=== PATIENT | female | born 1980 | race Caucasian/White ===

== ENCOUNTER 2016-12-03 12:32 | Inpatient (IN) | payer SELFPAY ==
[~2016-12-03] VITALS: Ht 152.4 cm; Wt 62.5 kg
[2016-12-03] MEDS ORDERED: PRENAT PO (13:08)
[2016-12-03] MEDS ORDERED: TERBUTALINE 1 ML ONE (13:38)
[2016-12-03 13:54] VITALS: BP 123/62; PULSE 80; RESP 20
[2016-12-03 13:55] VITALS: Ht 152.4 cm; Wt 62.5 kg
[2016-12-03] MEDS ORDERED: LACTATED RINGER'S 500 ML IV ONE (14:00)
[2016-12-03] MEDS ORDERED: TERBUTALINE 1 MG/ML INJ SC ONE ×2 (14:00→15:00)
--- NOTE | 2016-12-03 14:00 | RADRPT ---
PROCEDURE: US OB. CLINICAL INDICATION: labor TECHNIQUE: Multiple sonographic images of the pelvis were obtained. Transabdominal imaging only w as performed. The images were reviewed on a PACS workstation. COMPARISON: No prior studies are available for comparison. FINDINGS: There is a single live intrauterine gestation. Cardiac activity is present with 144 beats per minut e. position is cephalic. The cervix is closed with a length of 2.7 cm. Measurements were made in order to determine age. The results are as follows: BPD = 6.34 cm HC = 23.01 cm AC = 21.23 cm FL = 4.51 cm. Estimated gestational age of approximately 25 weeks 2 days. The estimated date of delivery is 03/16/2017. The EFW = 802.51 g, 43 %ile. The placenta is anterior. There is no evidence for an abruption or placenta previa. There are no adnexal masses. The RINA measures 11.8 cm. IMPRESSION: 1. Single live intrauterine gestation of approximately 25 weeks 2 days, by ultrasound criteria. 2. The estimated date of delivery is 03/16/2017. 3. The estimated weight is 802.5 g, 43 %ile. 4. The RINA measures 11.8 cm. 5. The cervix is closed with a length of 2.7 cm. RPTAT: HH .Radha Baez MD, Date Time Electronically viewed and signed by .Radha Baez MD, on 12/03/2016 13:59 .G/
[2016-12-03 14:32] LABS: BASOPHIL # 0.1 10^3/ul (0.0-0.1); BASOPHILS % 0.3 % (0.0-2.0); EOSINOPHILS % 0.2 % (0.0-7.0); HEMATOCRIT 35.6 % (37.0-47.0); HEMOGLOBIN 12.4 g/dl (12.0-16.0); LYMPHOCYTES # 3.5 10^3/ul (0.8-2.9); LYMPHOCYTES % 17.6 % (15.0-51.0); MEAN CORPUSCULAR HEMOGLOBIN 30.8 pg (29.0-33.0); MEAN CORPUSCULAR HGB CONC 34.8 g/dl (32.0-37.0); MEAN CORPUSCULAR VOLUME 88.6 fl (82.0-101.0); MEAN PLATELET VOLUME 9.7 fl (7.4-10.4); MONOCYTE # 1.3 10^3/ul (0.3-0.9); MONOCYTES % 6.7 % (0.0-11.0); NEUTROPHILS % 73.7 % (39.0-77.0); PLATELET COUNT 313 10^3/UL (140-415); RED BLOOD COUNT 4.02 10^6/ul (4.20-5.40); RED CELL DISTRIBUTION WIDTH 13.1 % (11.5-14.5); WHITE BLOOD COUNT 20.1 10^3/ul (4.8-10.8)
[2016-12-03 14:34] LABS: ADD UMIC NO; UR ASCORBIC ACID NEGATIVE (NEGATIVE); UR BILIRUBIN (Dip) NEGATIVE (NEGATIVE); UR BLOOD (Dip) NEGATIVE (NEGATIVE); UR CLARITY CLEAR (CLEAR); UR COLOR STRAW (YELLOW); UR GLUCOSE (Dip) NEGATIVE (NEGATIVE); UR KETONES (Dip) NEGATIVE (NEGATIVE); UR LEUKOCYTE ESTERASE (Dip) NEGATIVE Leu/ul (NEGATIVE); UR NITRITE (Dip) NEGATIVE (NEGATIVE); UR SPECIFIC GRAVITY (Dip) 1.006 (1.003-1.030); UR TOTAL PROTEIN (Dip) NEGATIVE (NEGATIVE); UR UROBILINOGEN (Dip) NEGATIVE (NEGATIVE)
[2016-12-03 14:54] LABS: ALBUMIN 4.2 g/dl (3.3-4.9); ALBUMIN/GLOBULIN RATIO 1.02; BILIRUBIN,INDIRECT 0.2 mg/dl (0-1.1); BILIRUBIN,TOTAL 0.2 mg/dl (0.2-1.3); CALCIUM 10.2 mg/dl (8.4-10.2); CREATININE 0.52 mg/dl (0.44-1.00); TOTAL PROTEIN 8.3 g/dl (6.1-8.1)
[2016-12-03 15:02] LABS: BARBITURATES Negative (NEGATIVE); BENZODIAZEPINES Negative (NEGATIVE); CANNABINOIDS Negative (NEGATIVE); COCAINE Negative (NEGATIVE); OPIATES Negative (NEGATIVE)
[2016-12-03] MEDS ORDERED: MAGNESIUM SULFATE 4 GM/100 ML 100 ML IV ONE (15:30)
[2016-12-03] MEDS ORDERED: CEFTRIAXONE 2 GM INJ IM ONE (15:30)
[2016-12-03] MEDS: BETAMET NA PHOS/AC(6 MG/ML) 5ML INJ IM SCH (15:52)
[2016-12-03] MEDS: LACTATED RINGER'S 1,000 ML IV SCH (15:52)
[2016-12-03] MEDS: MAGNESIUM SULFATE 20 GM/500 ML 500 ML IV SCH (16:07)
[2016-12-03 16:25] LABS: INR 0.89; PARTIAL THROMBOPLASTIN TIME 24.4 Sec (25.0-35.0); PT RATIO 0.9
--- NOTE | 2016-12-03 16:37 | HP ---
Date/Time of Note Date/Time of Note DATE: 12/03/16 TIME: 16:15 OB - History Hx of Present Free Text/Dictation December 03, 2016 OB triage consult and history and physical for admission This patient is a 36 years old 1 para 0 who came to triage clinic complaining of abdominal pain and occasional contractions. She [facility] only a few days ago. . On examination she is an apparently well-developed well-nourished at midterm in no acute distress. However on conversation she says she came to triage because of pain in the abdominal area. Her general vital signs appear to be normal; with blood pressure of 123/62, pulse rate of 80 respiration 20 temperature 97.7. Abdomen is soft .she complains of slight stomach tenderness. she does have contraction every 7-8 minutes. No suprapubic or costovertebral vertebral angle tenderness. On pelvic examination the cervix was closed ,long and high with intact membrane Laboratory Tests Test 12/03/16 13:19 12/03/16 14:10 Urine Color STRAW Urine Clarity CLEAR Urine pH 7.0 Urine Specific [place] 1.006 Urine Ketones NEGATIVEmg/dL Urine Nitrite NEGATIVEmg/dL Urine Bilirubin NEGATIVEmg/dL Urine Urobilinogen NEGATIVEmg/dL Urine Leukocyte Esterase NEGATIVELeu/ul Urine Hemoglobin NEGATIVEmg/dL Urine Glucose NEGATIVEmg/dL Urine Total Protein NEGATIVEmg/dl Fibronectin NEGATIVE Urine Opiates Screen Negative Urine Barbiturates Negative Urine Amphetamines Screen Negative Urine Benzodiazepines Screen Negative Urine Cocaine Screen Negative Urine Cannabinoids Negative White Blood Count 20.110^3/ul Red Blood Count 4.0210^6/ul Hemoglobin 12.4g/dl Hematocrit 35.6% Mean Corpuscular Volume 88.6fl Mean Corpuscular Hemoglobin 30.8pg Mean Corpuscular Hemoglobin Concent 34.8g/dl Red Cell Distribution Width 13.1% Platelet Count 03287^3/UL Mean Platelet Volume 9.7fl Neutrophils % 73.7% Lymphocytes % 17.6% Monocytes % 6.7% Eosinophils % 0.2% Basophils % 0.3% Nucleated Red Blood Cells % 0.0/100WBC Neutrophils # (Manual) 14.810^3/ul Lymphocytes # 3.510^3/ul Monocytes # 1.310^3/ul Eosinophils # 0.010^3/ul Basophils # 0.110^3/ul Nucleated Red Blood Cells # 0.010^3/ul Sodium Level 140mmol/L Potassium Level 4.0mmol/L Chloride Level 106mmol/L Carbon Dioxide Level 23mmol/L Anion Gap 15 Blood Urea Nitrogen 5mg/dl Creatinine 0.52mg/dl Glucose Level 75mg/dl Calcium Level 10.2mg/dl Total Bilirubin 0.2mg/dl Direct Bilirubin 0.00mg/dl Indirect Bilirubin 0.2mg/dl Aspartate Amino Transf (AST/SGOT) 21IU/L Alanine Aminotransferase (ALT/SGPT) 20IU/L Alkaline Phosphatase 98IU/L Total Protein 8.3g/dl Albumin 4.2g/dl Globulin 4.10g/dl Albumin/Globulin Ratio 1.02 Current Medications Medications (Trade) Dose Ordered Sig/Jody Route PRN Reason Start Time Stop Time Status Last Admin Dose Admin Terbutaline Sulfate 0.25 mg 0.25 mg ONCE ONCE SC 12/03/16 14:00 12/03/16 14:01 DC 12/03/16 13:51 Lactated Ringer's 500 ml @ 500 mls/hr Q1H ONCE IV 12/03/16 14:00 12/03/16 14:59 DC 12/03/16 14:00 [facility] .[facility] 12/03/16 13:38 12/03/16 13:39 DC Terbutaline Sulfate 0.25 mg 0.25 mg ONCE ONCE SC 12/03/16 15:00 12/03/16 15:01 DC 12/03/16 15:04 Lactated Ringer's 1,000 ml @ 125 mls/hr Q8H IV 12/03/16 15:00 12/03/16 15:52 Magnesium Sulfate 100 ml @ 200 mls/hr ONCE ONCE IV 12/03/16 15:30 12/03/16 15:59 DC 12/03/16 15:58 Magnesium Sulfate (Magnesium Sulfate 20 Gm/500 ml) 500 ml @ 50 mls/hr Q10H IV 12/03/16 15:15 12/03/16 16:07 Betamethasone Acet/Betameth SodPhos (Celestone Soluspan) 12 mg Q24H IM 12/03/16 15:30 12/04/16 15:31 12/03/16 15:52 Prenat Multivit/ Investment Analyst/Iron/Folic Ac () 1 tab DAILY PO 12/03/16 15:30 Docusate Sodium (Colace) 100 mg DAILY PO 12/04/16 09:00 Ceftriaxone Sodium (Rocephin) 2 gm ONCE ONCE IM 12/03/16 15:30 12/03/16 15:31 DC : 1 Para: 0 Ultrasounds: No ultrasounds Abnormal Ultrasound Findings: On ultrasound study the report is a single live intrauterine gestation, cardiac activity present with 144 bpm in vertex presentation cervix is closed with a length of 2.7 cm .the estimated gestational age of approximately 25 weeks and 2 days with estimated date of delivery of February. Her estimated weight was 802.51 g which makes her 43rd percentile .placenta was anterior .amniotic fluid index was reported 11.8. On laboratory studies the most striking finding was the was the WBC of 20,100 RBC hematocrit platelet count were within normal limits Impression: With these finding the possibility of amnionitis ,appendicitis or any other infectious process was entertained. Plan: Will start tocolysis: hydration given .terbutaline was injected, mag sulfate started. Due to possibility of infection Betamethasone was not given. We will start her on Rocephin 2 g on a daily basis. As a follow-up tomorrow few of these studies including CBC and ultrasound with repeated End of dictation thank you Past Family/Social History * Past Medical, Surgical, Family and Obstetric Histories reviewed from chart. OB Admission Exam Vital Signs Vital Signs Vital Signs Date Time Temp Pulse Resp B/P Pulse Ox O2 Delivery O2 Flow Rate FiO2 12/03/16 13:54 98.0 80 20 123/62 Room Air Last 72 hours Lab Results CBC & BMP 12/03/16 14:10 Liver Function Test 12/03/16 14:10 Alanine Aminotransferase (ALT/SGPT) 20 Albumin 4.2 Alkaline Phosphatase 98 Aspartate Amino Transf (AST/SGOT) 21 Direct Bilirubin 0.00 Total Protein 8.3 H PEPE KING MD Dec 03, 2016 16:27
[2016-12-03] MEDS ORDERED: CEFTRIAXONE 2 GM/50 ML (PMX) 50 ML IVPB ONE (17:30)
[2016-12-03] MEDS ORDERED: ONDANSETRON 4 MG INJ IV PRN (20:00)
[2016-12-03] MEDS ORDERED: AL HYDROX/MG HYDROX/SIMETH 30 ML CUP PO PRN (20:00)
[2016-12-03] MEDS: PRENATAL VITAMIN PO SCH (20:28)
[2016-12-03] MEDS: ACETAMINOPHEN 325 MG TAB PO PRN (20:30)
[2016-12-04] MEDS: MAGNESIUM SULFATE 20 GM/500 ML 500 ML IV SCH ×2 (02:29→13:15)
[2016-12-04] MEDS: LACTATED RINGER'S 1,000 ML IV SCH ×2 (02:30→14:56)
[2016-12-04] MEDS: ACETAMINOPHEN 325 MG TAB PO PRN (09:38)
[2016-12-04] MEDS: DOCUSATE SODIUM 100 MG CAP PO SCH (09:39)
[2016-12-04] MEDS: PRENATAL VITAMIN PO SCH (09:39)
[2016-12-04 12:27] LABS: ABNORMAL IP MESSAGE 1; BASOPHILS % 0.2 % (0.0-2.0); HEMATOCRIT 33.1 % (37.0-47.0); HEMOGLOBIN 11.6 g/dl (12.0-16.0); LYMPHOCYTES # 1.8 10^3/ul (0.8-2.9); MEAN CORPUSCULAR HEMOGLOBIN 31.5 pg (29.0-33.0); MEAN CORPUSCULAR VOLUME 89.9 fl (82.0-101.0); MEAN PLATELET VOLUME 9.1 fl (7.4-10.4); MONOCYTE # 1.2 10^3/ul (0.3-0.9); MONOCYTES % 4.7 % (0.0-11.0); NEUTROPHILS % 87.1 % (39.0-77.0); PLATELET COUNT 320 10^3/UL (140-415); RED BLOOD COUNT 3.68 10^6/ul (4.20-5.40); RED CELL DISTRIBUTION WIDTH 13.2 % (11.5-14.5); WHITE BLOOD COUNT 25.9 10^3/ul (4.8-10.8)
[2016-12-04 12:28] LABS: POSITIVE DIFF @See below
--- NOTE | 2016-12-04 13:28 | QN ---
Documentation Comment 25+wks GA wih labor Currently on Mg And s/p 1st dose of steroid NSt reassuring for GA [place] No CTXs --->contiue the current orders OLGA STEINBERG M.D. Dec 04, 2016 13:28
[2016-12-04] MEDS ORDERED: INDOMETHACIN 50 MG PO ONE (16:00)
[2016-12-04] MEDS: BETAMET NA PHOS/AC(6 MG/ML) 5ML INJ IM SCH (16:28)
[2016-12-04] MEDS ORDERED: INDOMETHACIN 25 MG PO SCH (17:00)
--- NOTE | 2016-12-04 17:46 | CONS ---
DATE OF ADMISSION: 12/03/2016 DATE OF CONSULTATION: 12/04/2016 Neonatology Consult HISTORY OF PRESENT ILLNESS: Martha is a 36-year-old, 1, para 0 mother whose gestation presently is 25 and 3/7 weeks'. She came in through ER panel with evidence of labor and no records having recently moved from [facility]. The mother is presently receiving Rocephin, steroids and magnesium sulfate for tocolysis. RECOMMENDATIONS: I spoke to the mother and father in [place] regarding the risks associated with delivery at 25-26 weeks of gestation, including but not limited to, the following: Respiratory. I spoke about the risk of respiratory distress syndrome, as well as the treatment using oxygen ventilatory support and noninvasive support. There is also significant risk for apnea of prematurity and I discussed the use of caffeine and nasal cannula support for this once the infant was extubated. There is also a significant risk for chronic lung disease especially in those infants at 25 weeks of gestation and less. I spoke about the risks of cardiac problems, including hypertension, the use of inotrope support and volume support and patent ductus arteriosus and its treatment. I spoke about the risks of infection, the use of antibiotics. I spoke about the risks for anemia possibility for transfusions as well as physiologic jaundice and use of phototherapy. I spoke about the risk of interventricular hemorrhage and long- term neurodevelopmental problems. I also spoke about the nutritive problems associated with premature requirement for parental nutrition initially as well as gavage feedings. There is a small risk of this infant having significant disease processes which may cause loss that is probably less than 5-10 percent. The risk of long-term developmental problems are probably more so around 20-25 percent. These were discussed with the parents. I answered the parents questions and will be available for attendance at delivery or further consultation as necessary. If you have any further questions, please do not hesitate to contact me. Dictated By: Aye Samuel MD /sacha/fernando Kim#: [id number]/Document#: [id number] CC: Virgen Murphy MD;*EndCC*
[2016-12-05] MEDS: LACTATED RINGER'S 1,000 ML IV SCH ×3 (00:35→17:52)
[2016-12-05] MEDS: INDOMETHACIN 25 MG PO SCH ×5 (01:01→23:00)
[2016-12-05 06:38] LABS: BASOPHILS % 0.1 % (0.0-2.0); HEMATOCRIT 31.4 % (37.0-47.0); HEMOGLOBIN 10.7 g/dl (12.0-16.0); LYMPHOCYTES # 1.9 10^3/ul (0.8-2.9); LYMPHOCYTES % 8.3 % (15.0-51.0); MEAN CORPUSCULAR HEMOGLOBIN 30.7 pg (29.0-33.0); MEAN CORPUSCULAR HGB CONC 34.1 g/dl (32.0-37.0); MEAN PLATELET VOLUME 9.4 fl (7.4-10.4); MONOCYTE # 0.7 10^3/ul (0.3-0.9); MONOCYTES % 3.2 % (0.0-11.0); NEUTROPHILS % 87.2 % (39.0-77.0); PLATELET COUNT 327 10^3/UL (140-415); RED BLOOD COUNT 3.49 10^6/ul (4.20-5.40); WHITE BLOOD COUNT 22.7 10^3/ul (4.8-10.8)
[2016-12-05] MEDS: PRENATAL VITAMIN PO SCH (08:48)
[2016-12-05] MEDS: DOCUSATE SODIUM 100 MG CAP PO SCH (08:48)
[2016-12-05] MEDS: MAGNESIUM SULFATE 20 GM/500 ML 500 ML IV SCH (08:50)
--- NOTE | 2016-12-05 12:13 | QN ---
Documentation Comment December 05, 2069 follow-up visit Follow-up visit with this patient who was admitted 2 days ago. This patient is a 36 years old 1 para 0 who came to triage clinic complaining of abdominal pain and occasional contractions. She states that she entered the [facility] from [facility] only a few days ago. ..She had her course of a beta Methasone her mag sulfate is now 1 g/h Her WBC still elevated 22.7 thousand But today she is more comfortable abdomen is soft. tracing are normal with fairly good variability . Laboratory Tests Test 12/04/16 12:12 12/04/16 23:57 12/05/16 05:58 White Blood Count 25.910^3/ul 22.710^3/ul Red Blood Count 3.6810^6/ul 3.4910^6/ul Hemoglobin 11.6g/dl 10.7g/dl Hematocrit 33.1% 31.4% Mean Corpuscular Volume 89.9fl 90.0fl Mean Corpuscular Hemoglobin 31.5pg 30.7pg Mean Corpuscular Hemoglobin Concent 35.0g/dl 34.1g/dl Red Cell Distribution Width 13.2% 13.0% Platelet Count 90812^3/UL 37534^3/UL Mean Platelet Volume 9.1fl 9.4fl Neutrophils % 87.1% 87.2% Lymphocytes % 7.0% 8.3% Monocytes % 4.7% 3.2% Eosinophils % 0.0% 0.0% Basophils % 0.2% 0.1% Nucleated Red Blood Cells % 0.0/100WBC 0.0/100WBC Neutrophils # (Manual) 22.610^3/ul 19.810^3/ul Lymphocytes # 1.810^3/ul 1.910^3/ul Monocytes # 1.210^3/ul 0.710^3/ul Eosinophils # 0.010^3/ul 0.010^3/ul Basophils # 0.010^3/ul 0.010^3/ul Nucleated Red Blood Cells # 0.010^3/ul 0.010^3/ul Magnesium Level 5.6mg/dl 4.2mg/dl 4.3mg/dl Current Medications Medications (Trade) Dose Ordered Sig/Jody Route PRN Reason Start Time Stop Time Status Last Admin Dose Admin Terbutaline Sulfate 0.25 mg 0.25 mg ONCE ONCE SC 12/03/16 14:00 12/03/16 14:01 DC 12/03/16 13:51 Lactated Ringer's 500 ml @ 500 mls/hr Q1H ONCE IV 12/03/16 14:00 12/03/16 14:59 DC 12/03/16 14:00 Terbutaline Sulfate (Brethine) 1 ml @ [facility] ONCE .ROUTE 12/03/16 13:38 12/03/16 13:39 DC Terbutaline Sulfate 0.25 mg 0.25 mg ONCE ONCE SC 12/03/16 15:00 12/03/16 15:01 DC 12/03/16 15:04 Lactated Ringer's 1,000 ml @ 75 mls/hr [id number] IV 12/03/16 15:00 12/05/16 05:09 Magnesium Sulfate 100 ml @ 200 mls/hr ONCE ONCE IV 12/03/16 15:30 12/03/16 15:59 DC 12/03/16 15:58 Magnesium Sulfate (Magnesium Sulfate 20 Gm/500 ml) 500 ml @ 25 mls/hr Q20H IV 12/03/16 15:15 12/05/16 08:50 Betamethasone Acet/Betameth SodPhos (Celestone Soluspan) 12 mg Q24H IM 12/03/16 15:30 12/04/16 15:31 DC 12/04/16 16:28 Prenat Multivit/ Dickenson/Iron/Folic Ac () 1 tab DAILY PO 12/03/16 15:30 12/05/16 08:48 Docusate Sodium (Colace) 100 mg DAILY PO 12/04/16 09:00 12/05/16 08:48 Ceftriaxone Sodium 2 gm 2 gm ONCE ONCE IM 12/03/16 15:30 12/03/16 17:04 DC Ceftriaxone Sodium (Rocephin) 50 ml @ 100 mls/hr ONCE ONCE IVPB 12/03/16 17:30 12/03/16 17:59 DC 12/03/16 17:26 Acetaminophen (Tylenol Tab) 650 mg Q6H PRN PO PAIN AND OR ELEVATED TEMP 12/03/16 20:00 12/04/16 09:38 Ondansetron HCl (Zofran Inj) 4 mg Q4H PRN IV NAUSEA AND/OR VOMITING 12/03/16 20:00 Al Hydrox/Mg Hydrox/Simethicone (Mag-Al Plus) 30 ml Q6H PRN PO GASTROINTESTINAL UPSET 12/03/16 20:00 12/03/16 20:30 Indomethacin (Indocin) 50 mg ONCE ONCE PO 12/04/16 16:00 12/04/16 16:01 DC 12/04/16 16:28 Indomethacin (Indocin) 25 mg QID PO 12/04/16 17:00 12/04/16 17:00 DC Indomethacin (Indocin) 25 mg Q6H PO 12/04/16 23:00 12/05/16 11:03 A CBC report from today shows a WBC of 22,700 mild anemia hemoglobin 10.7 hematocrit 31.4 platelet on the other element of CBC are close to normal The plan would be to monitor and continue the treatment to make sure that she is a stable.and is able to be discharged PEPE KING MD Dec 05, 2016 12:13
[2016-12-05] MEDS: AMOXICILLIN 500 MG CAP PO SCH (21:23)
--- NOTE | 2016-12-06 00:15 | CONS ---
DATE OF ADMISSION: 12/03/2016 DATE OF CONSULTATION: 12/05/2016 HISTORY: Patient is a 36-year-old who presented the day before yesterday with complaint of contractions. Her white count was 20,000 at the time of admission, without any fever. She denies any exposure to cold or any other infectious diseases. However, she was georges regularly. She was placed on magnesium sulfate; however, despite recommendation, she received betamethasone, and yesterday her white count was 25,000 which is reflection of effect of betamethasone that she received; however, today despite the 2nd dose of betamethasone, her white count has decreased to 22,000, which is reassuring. She received 1 dose of Rocephin at the time of admission. Currently, she has no complaint. Her contractions have resolved. Cervical length, 2.7 cm. History is negative. REVIEW OF SYSTEMS: Negative, except for as mentioned above. VITAL SIGNS: Stable, without any fever. There is no evidence of CVA tenderness. heart tones reassuring for gestational age, contractions none. LABORATORY: UA shows positive GBS in the urine. IMPRESSION: 1. 1 at 25 weeks with labor, status post betamethasone x2 and currently on magnesium. 2. Leukocytosis, which is most likely secondary to urinary tract infection. 3. She is stable, without any contractions, and the increase in the white count, which is the reflection of the betamethasone, and please understand that despite 2 doses of betamethasone, her white count essentially has decreased since yesterday, which is reassuring. RECOMMENDATIONS: Repeat a CBC tomorrow. Please start amoxicillin 500 mg twice a day for 7 days for treatment of the GBS. Continue with the magnesium sulfate until 24 hours after the 2nd dose of betamethasone. After that, can continue and monitor for contraction. If the white count continues to decrease and patient is stable, she can be discharged home, possibly tomorrow, and it is extremely important that patient finishes the present dose of antibiotics. labor precaution was given, and she is scheduled for a transvaginal cervical length in 2 weeks with the Perinatology and modified bedrest and pelvic rest are recommended. Dictated By: Cammie Tinoco MD /sacha/luis /Document#: [id number]
[2016-12-06] MEDS: INDOMETHACIN 25 MG PO SCH ×2 (06:07→11:28)
[2016-12-06 07:15] LABS: BASOPHILS % 0.1 % (0.0-2.0); EOSINOPHILS # 0.1 10^3/ul (0.0-0.5); EOSINOPHILS % 0.3 % (0.0-7.0); HEMATOCRIT 28.3 % (37.0-47.0); HEMOGLOBIN 9.4 g/dl (12.0-16.0); LYMPHOCYTES % 24.6 % (15.0-51.0); MEAN CORPUSCULAR HEMOGLOBIN 30.5 pg (29.0-33.0); MEAN CORPUSCULAR HGB CONC 33.2 g/dl (32.0-37.0); MEAN CORPUSCULAR VOLUME 91.9 fl (82.0-101.0); MEAN PLATELET VOLUME 9.5 fl (7.4-10.4); MONOCYTE # 0.9 10^3/ul (0.3-0.9); MONOCYTES % 5.3 % (0.0-11.0); NEUTROPHILS % 68.6 % (39.0-77.0); PLATELET COUNT 296 10^3/UL (140-415); RED BLOOD COUNT 3.08 10^6/ul (4.20-5.40); RED CELL DISTRIBUTION WIDTH 13.2 % (11.5-14.5); WHITE BLOOD COUNT 16.2 10^3/ul (4.8-10.8)
[2016-12-06] MEDS: LACTATED RINGER'S 1,000 ML IV SCH (08:29)
[2016-12-06] MEDS: PRENATAL VITAMIN PO SCH (08:29)
[2016-12-06] MEDS: AMOXICILLIN 500 MG CAP PO SCH (08:29)
[2016-12-06] MEDS: DOCUSATE SODIUM 100 MG CAP PO SCH (08:29)
--- NOTE | 2016-12-06 11:33 | PN ---
Date/Time of Note Date/Time of Note DATE: 12/06/16 TIME: 11:32 OB Subjective Subjective Subjective Patient denies contractions. OB Objective Objective Objective Gen: NAD Abd: gravid, NT FHT: reassuring [place]: no UCs OB Assessment/Plan Reason for admission: labor Other plan: 36 y/o at 25w 4d with labor -s/p magnesium sulfate, betamethasone -continue antibiotics for UTI -discharge home with copy of records, plans to follow-up in [facility] with her OB EMILY ZEPEDA Dec 06, 2016 11:33
--- NOTE | 2016-12-06 11:35 | DS ---
Date/Time of Note Date/Time of Note DATE: 12/06/16 TIME: 11:34 Obstetrical Discharge Record Final Diagnosis Final Diagnosis: not delivered Condition on Discharge Physical Assessment Last Vitals: See progress note Patient Condition: Good EMILY ZEPEDA Dec 06, 2016 11:35
== END 2016-12-06 12:20 | disposition home or self-care (01) | DRG 780 ==
LOC: OBT 12:32 → OBG 12:32 → OBT 15:00
DX: O47.03 False labor before 37 completed weeks of gestation, third trimester (principal); O09.513 Supervision of elderly primigravida, third trimester; Z3A.36 36 weeks gestation of pregnancy
CPT/HCPCS: 59025; 76815; 76817; 80053; 80307; 81003; 82731; 83735; 85025; 85610; 85730; 86592; 86703; 86706; 86900; 86901; 87040; 87086; 87340; 87536; 87591; 96360; 96372; G0463; J0702; J3105; J3475; J7120

== ENCOUNTER 2017-01-07 08:27 | Inpatient (IN) | payer MEDICAID ==
[~2017-01-07] VITALS: Ht 154.9 cm; Wt 66.1 kg
[2017-01-07 08:43] VITALS: BP 107/63; PULSE 76; Ht 154.9 cm; Wt 66.1 kg
[2017-01-07] MEDS ORDERED: LACTATED RINGER'S 1,000 ML IV SCH ×2 (09:00→10:01)
--- NOTE | 2017-01-07 09:41 | RADRPT ---
PROCEDURE: US OB biophysical profile. Ultrasound cervix CLINICAL INDICATION: decreased movements, labor TECHNIQUE: Multiple sonographic images of the pelvis were obtained. In addition, transvaginal artemio ges of the cervix were obtained. The images were reviewed on a PACS workstation. COMPARISON: No prior studies are available for comparison. FINDINGS: There is a single viable intrauterine gestation. Cardiac activity is present with 152 beats per min rowdy. There is a vertex presentation. The placenta is anterior. There is no evidence of placental abruption. There is a normal amount of amniotic fluid with an RINA = 10.6 cm. The cervix measures 3.0 cm in length. Biophysical profile: movement 2/2 tone 2/2. breathing 2/2 RINA 2/2 Total 11/05 RPTAT: AA . IMPRESSION: Normal biophysical profile. Cervix measures 3.0 cm in length. .Bernard Samayoa MD, MD Date Time Electronically viewed and signed by .Bernard Samayoa MD, on 01/07/2017 09:41 .S/
[2017-01-07] MEDS ORDERED: TERBUTALINE 1 ML ONE (09:42)
[2017-01-07 09:44] LABS: BASOPHIL # 0.1 10^3/ul (0.0-0.1); BASOPHILS % 0.4 % (0.0-2.0); EOSINOPHILS % 0.2 % (0.0-7.0); HEMATOCRIT 36.6 % (37.0-47.0); HEMOGLOBIN 12.4 g/dl (12.0-16.0); LYMPHOCYTES # 2.8 10^3/ul (0.8-2.9); LYMPHOCYTES % 17.7 % (15.0-51.0); MEAN CORPUSCULAR HEMOGLOBIN 30.4 pg (29.0-33.0); MEAN CORPUSCULAR HGB CONC 33.9 g/dl (32.0-37.0); MEAN CORPUSCULAR VOLUME 89.7 fl (82.0-101.0); MEAN PLATELET VOLUME 9.4 fl (7.4-10.4); MONOCYTE # 0.8 10^3/ul (0.3-0.9); MONOCYTES % 4.8 % (0.0-11.0); NEUTROPHILS % 75.5 % (39.0-77.0); PLATELET COUNT 301 10^3/UL (140-415); RED BLOOD COUNT 4.08 10^6/ul (4.20-5.40); RED CELL DISTRIBUTION WIDTH 12.9 % (11.5-14.5); WHITE BLOOD COUNT 15.9 10^3/ul (4.8-10.8)
[2017-01-07 09:52] LABS: ADD UMIC YES; UR ASCORBIC ACID NEGATIVE (NEGATIVE); UR BILIRUBIN (Dip) NEGATIVE (NEGATIVE); UR BLOOD (Dip) NEGATIVE (NEGATIVE); UR CLARITY CLOUDY (CLEAR); UR COLOR YELLOW (YELLOW); UR GLUCOSE (Dip) NEGATIVE (NEGATIVE); UR KETONES (Dip) 1+ mg/dL (NEGATIVE); UR LEUKOCYTE ESTERASE (Dip) 3+ Leu/ul (NEGATIVE); UR NITRITE (Dip) NEGATIVE (NEGATIVE); UR RBC 7 /HPF (0-5); UR SPECIFIC GRAVITY (Dip) 1.011 (1.003-1.030); UR SQUAMOUS EPITHELIAL CELL MANY /HPF (FEW); UR TOTAL PROTEIN (Dip) NEGATIVE (NEGATIVE); UR UROBILINOGEN (Dip) NEGATIVE (NEGATIVE)
[2017-01-07] MEDS ORDERED: TERBUTALINE 1 MG/ML INJ SC ONE (10:00)
[2017-01-07] MEDS ORDERED: MAGNESIUM SULFATE 4 GM/100 ML 100 ML IV ONE (10:30)
[2017-01-07] MEDS: MAGNESIUM SULFATE 20 GM/500 ML 500 ML IV SCH ×2 (11:24→22:09)
[2017-01-07] MEDS: PRENATAL VITAMIN PO SCH (11:34)
[2017-01-07] MEDS ORDERED: CEFTRIAXONE 1 GM/50 ML (PMX) 50 ML IVPB ONE (15:00)
[2017-01-07] MEDS: SOD CHLORIDE 0.9% 1,000 ML IV SCH (15:49)
--- NOTE | 2017-01-07 17:43 | HP ---
Date/Time of Note Date/Time of Note DATE: 01/07/17 TIME: 17:24 OB - History Hx of Present Free Text/Dictation 36 y.o primigravida at 30w2d with c/o uterine contractions. this patient was here for same problem in dec 03 and and had x2 dose of BMZ pain level 8/10 membrane intact BPP 8/8 CVL 3. no FFN sent EFM shows UC q2-3 min apart even after terbutaline x1 dose given IV bolus of fluid Magnesium sulfate was given as loading dose then admitted for tocolysis and neuroprotection purposes U/A urine culture sent Chief Complaint: u.c's Estimated Due Date: Mar 16, 2017 : 1 Para: 0 Spontaneous : 0 Therapeutic : 0 Care: Limited Care Other Concerns: !hr GTT 200 done on 12/30 f/b 3hr GTT x2 value abnormal Past Family/Social History * Past Medical, Surgical, Family and Obstetric Histories reviewed from chart. Blood Type: O+ Rubella: immune RPR/VDRL: Negative GBS Status: Unknown HBsAG: Negative OB Admission Exam Vital Signs Vital Signs Vital Signs Date Time Temp Pulse Resp B/P Pulse Ox O2 Delivery O2 Flow Rate FiO2 01/07/17 08:43 97.8 76 107/63 Physical Exam HEENT: WNL Heart: Rhythm Normal Lungs: Clear, Equal Abdomen: WNL Extremities: Normal Reflexes: Normal Cervical Dilatation: other Effacement: Other Station: Other Membranes: Intact Amniotic Fluid: Unevaluable Heart Rate: 140's Accelerations: Accelerations Present Decelerations: No Decelerations Varibility: Moderate Contractions on Admission: < 5 Minutes Apart Intensity: Moderate Last 72 hours Lab Results CBC & BMP 01/07/17 09:25 OB Assessment/Plan Reason for admission: labor Other Assessment: IUP 30w2d PTL GDM Other plan: tocolysis with MgSo4 HbA1C, FBS 2hrPPBS 2000ADA DIET APPLICATION SECURITY SPECIALIST PERINATALOGY CONSULT JAI GARNER MD Jan 07, 2017 17:35
[2017-01-07] MEDS ORDERED: ACETAMINOPHEN 500 MG TAB PO STA (18:25)
[2017-01-07 18:27] LABS: ALBUMIN 3.7 g/dl (3.3-4.9); BILIRUBIN,INDIRECT 0.2 mg/dl (0-1.1); BILIRUBIN,TOTAL 0.2 mg/dl (0.2-1.3); CREATININE 0.49 mg/dl (0.44-1.00); POTASSIUM 3.5 mmol/L (3.5-5.1); TOTAL PROTEIN 7.4 g/dl (6.1-8.1)
[2017-01-07] MEDS ORDERED: GLUCAGON 1 MG INJ IM PRN (18:30)
[2017-01-07] MEDS ORDERED: GLUCOSE GEL 15 GRAM TUBE PO PRN ×2 (18:30)
[2017-01-07] MEDS ORDERED: GLUCOSE GEL 15 GRAM TUBE BUCCAL PRN (18:30)
[2017-01-07] MEDS ORDERED: ACETAMINOPHEN 500 MG TAB PO PRN (18:30)
[2017-01-07] MEDS ORDERED: ACETAMINOPHEN 325 MG TAB PO PRN (18:30)
[2017-01-07] MEDS ORDERED: AL HYDROX/MG HYDROX/SIMETH 30 ML CUP PO PRN (18:30)
[2017-01-07] MEDS ORDERED: DEXTROSE 50% 50 ML SYRINGE IV PRN ×2 (18:30)
[2017-01-07] MEDS ORDERED: ONDANSETRON 4 MG INJ IV PRN (18:30)
[2017-01-07] MEDS: ACCU-CHEK XX SCH (20:25)
[2017-01-08] MEDS: MAGNESIUM SULFATE 20 GM/500 ML 500 ML IV SCH ×3 (05:14→18:33)
[2017-01-08] MEDS: SOD CHLORIDE 0.9% 1,000 ML IV SCH ×2 (06:52→17:45)
[2017-01-08] MEDS: PRENATAL VITAMIN PO SCH (09:12)
[2017-01-08] MEDS: BETAMET NA PHOS/AC(6 MG/ML) 5ML INJ IM SCH (11:31)
[2017-01-08] MEDS: ACCU-CHEK XX SCH ×2 (15:00→19:45)
[2017-01-08] MEDS: CEFTRIAXONE 1 GM/50 ML (PMX) 50 ML IVPB SCH (15:53)
--- NOTE | 2017-01-08 18:06 | PN ---
Date/Time of Note Date/Time of Note DATE: 01/08/17 TIME: 18:04 OB Subjective Subjective Subjective 36-year-old female admitted for labor Currently does not have any uterine contractions Blood sugars appear to be stable OB Objective Objective Objective Vital signs stable General physical exam is unchanged Electronic monitoring no uterine contractions seen Blood sugars are stable OB Assessment/Plan Reason for admission: labor Other plan: We will stop magnesium sulfate the following day Start nifedipine after stopping magnesium sulfate Continue to monitor blood sugar Steroids were provided LAURA JOHNSON MD Jan 08, 2017 18:06
[2017-01-08] MEDS: INSULIN ASPART [NOVOLOG] 3 ML PEN SC SCH (20:03)
[2017-01-09] MEDS: MAGNESIUM SULFATE 20 GM/500 ML 500 ML IV SCH (02:39)
--- NOTE | 2017-01-09 06:35 | CONS ---
DATE OF ADMISSION: 01/07/2017 DATE OF CONSULTATION: This is essentially just a brief note as there is not much information for me to do the consult on. She is a newly diagnosed diabetic. There are only 2 values available, one was random last night of 168 and this morning at 88. I will talk to her and manage if necessary her diabetes pending more glucose values. But for the ti me being, insulin sliding scale to cover the values if elevated, and please note that insulin slidin g scale should not cover the fasting values and it only should cover the two hours prandial. Dictated By: DELMY CHAVEZ MD ST/NTS Conf#: [id number] DID#: [id number] CC: LAURA JOHNSON MD;*EndCC*
[2017-01-09] MEDS: ACCU-CHEK XX SCH ×3 (08:40→15:05)
[2017-01-09] MEDS: SOD CHLORIDE 0.9% 1,000 ML IV SCH (08:41)
[2017-01-09] MEDS: INSULIN ASPART [NOVOLOG] 3 ML PEN SC SCH ×2 (10:00→15:18)
[2017-01-09] MEDS: PRENATAL VITAMIN PO SCH (10:21)
[2017-01-09] MEDS: NIFEdipine 10 MG CAP PO SCH ×2 (10:22→16:13)
[2017-01-09] MEDS: BETAMET NA PHOS/AC(6 MG/ML) 5ML INJ IM SCH (12:53)
--- NOTE | 2017-01-09 14:57 | DS ---
Date/Time of Note Date/Time of Note DATE: 01/09/17 TIME: 14:55 Obstetrical Discharge Record Final Diagnosis Final Diagnosis: not delivered Other Final Diagnosis labor at 30+ week Complications Labor Tocolytics: Magnesium Sulfate, Other (Nifedipine) Condition on Discharge Physical Assessment Last Vitals: See nurse's note Voiding: Yes Bowel Movement: Yes Breast: Soft, non-tender, Filling Fundus: Other (Uterus is ) Abdomen and Incision: Abdomen is gravid fundal height is 30 Episiotomy: Not applicable Calf Tenderness: No Patient Condition: Good ( labor resolved) LAURA JOHNSON MD Jan 09, 2017 14:57
[2017-01-09] MEDS: CEFTRIAXONE 1 GM/50 ML (PMX) 50 ML IVPB SCH (16:04)
--- NOTE | 2017-01-09 17:43 | PD.PPDC ---
P[facility]Y [facility]AD[facility] Discharge Instruction Provider Information Physician Information 36-year-old female admitted with contractions at 30+ weeks and had total cessation of her contractions Diagnosis Final Diagnosis: Return labor Condition Patient Condition: Good ( labor resolved) Diet Diet: Special Diet Special Diet: 2000-calorie ADA Activity/Restrictions Activity: Bedrest May Shower Restrictions: Nothing in the Vagina Follow-up Follow-up with Physician: 1, Week/Weeks Return to clinic for Comment: Referred back to hospital in case of vaginal bleeding or uterine contractions LAURA JOHNSON MD Jan 09, 2017 17:43
[2017-01-09] MEDS ORDERED: NIFE10CA19 PO (17:44)
== END 2017-01-09 19:48 | disposition home or self-care (01) | DRG 780 ==
LOC: L-D 08:27 → OBT 08:27 → OBG 10:00 → OBT 10:01 → OBG 10:14
PROVIDERS: ADMIT Obstetrics & Gynecology; ATTEND Obstetrics & Gynecology
DX: O47.03 False labor before 37 completed weeks of gestation, third trimester (principal); O09.523 Supervision of elderly multigravida, third trimester; Z3A.30 30 weeks gestation of pregnancy
CPT/HCPCS: 36415; 76817; 76818; 80053; 81001; 82962; 83036; 83735; 85025; 87086; 96360; G0463; J0696; J0702; J1815; J3105; J3475; J7030; J7120

== ENCOUNTER 2017-01-16 12:51 | Inpatient (IN) | payer MEDICAID ==
[~2017-01-16] VITALS: Ht 149.9 cm; Wt 66.5 kg
[~2017-01-16 12:51] MED LIST: NIFE10CA19 PO
[2017-01-16 13:00] VITALS: Ht 149.9 cm; Wt 66.5 kg
[2017-01-16 13:01] VITALS: BP 103/58; PULSE 81
[2017-01-16] MEDS ORDERED: PREN-19 PO (13:04)
[2017-01-16] MEDS: LACTATED RINGER'S 1,000 ML IV SCH ×2 (14:08→21:04)
--- NOTE | 2017-01-16 14:34 | HP ---
Date/Time of Note Date/Time of Note DATE: 01/16/17 TIME: 14:31 OB - History Hx of Present Free Text/Dictation Admitted by perinatologist from nondistressed test unit because of a low RINA Last Menstrual Period: Jun 09, 2016 Estimated Due Date: Mar 16, 2017 : 1 Para: 0 Care: Good Care Ultrasounds: Normal mid trimester US Obstetrical Complications: Gestational Diabetes, Other ( labor) Medical Complications: None Past Family/Social History * Past Medical, Surgical, Family and Obstetric Histories reviewed from chart. Blood Type: O+ Rubella: immune RPR/VDRL: Negative GBS Status: Unknown HBsAG: Negative OB Admission Exam Vital Signs Vital Signs Vital Signs Date Time Temp Pulse Resp B/P Pulse Ox O2 Delivery O2 Flow Rate FiO2 01/16/17 13:01 97.7 81 103/58 Physical Exam HEENT: WNL Heart: Rhythm Normal Lungs: Clear, Equal Abdomen: WNL Extremities: Normal Reflexes: Normal Cervical Dilatation: None Effacement: 0% Station: -3 Membranes: Intact Heart Rate: 150's Accelerations: Accelerations Present Decelerations: No Decelerations Varibility: Moderate Contractions on Admission: None OB Assessment/Plan Other Assessment: 32+ weeks gestation Decrease amniotic fluid Gestational diabetes labor without delivery Other plan: Continue on Procardia IV hydration Monitor blood sugar Repeat RINA in LAURA Esteban MD Jan 16, 2017 14:34
[2017-01-16] MEDS: NIFEdipine 10 MG CAP PO SCH (17:28)
[2017-01-17] MEDS: NIFEdipine 10 MG CAP PO SCH ×4 (00:01→18:57)
[2017-01-17] MEDS: LACTATED RINGER'S 1,000 ML IV SCH ×3 (04:06→18:04)
--- NOTE | 2017-01-17 17:55 | RADRPT ---
PROCEDURE: US OB. CLINICAL INDICATION: Low RINA TECHNIQUE: Transabdominal views of the pelvis are available for review. COMPARISON: Obstetrical ultrasound from 01/07/2017 FINDINGS: There is a single intrauterine gestation in a vertex position. The heart rate is present at 144 bpm. The placenta is anterior and left lateral in location. There is no evidence of placenta previa or a placental abruption. The RINA measures 7.4 cm. RPTAT: AA IMPRESSION: Mildly low RINA of 7.4 cm, compared with an RINA of 10.6 cm on 01/07/2017. Physician Jessy Date Time Electronically viewed and signed by Physician Jessy on 01/17/2017 17:55 RA/
--- NOTE | 2017-01-17 18:28 | DS ---
Date/Time of Note Date/Time of Note DATE: 01/17/17 TIME: 18:27 Obstetrical Discharge Record Final Diagnosis Final Diagnosis: not delivered Other Final Diagnosis Status post observation and IV hydration Complications Other (Decrease amniotic fluid) Condition on Discharge Physical Assessment Voiding: Yes Bowel Movement: Yes Breast: Soft, non-tender, Filling Fundus: Other () Abdomen and Incision: Soft bowel sounds present Gravid Episiotomy: Not applicable Calf Tenderness: No Patient Condition: Good LAURA JOHNSON MD Jan 17, 2017 18:28
--- NOTE | 2017-01-17 18:30 | PD.PPDC ---
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 [employer]GGER Discharge Instruction Provider Information Physician Information 36-year-old female with gestational diabetes admitted at 32+ weeks gestation with decreased amniotic fluid After IV hydration amniotic fluid index increase itself to 7.6 cm Diagnosis Final Diagnosis: Decrease amniotic fluid status post observation Condition Patient Condition: Good Diet Diet: Special Diet Special Diet: 2000-calorie ADA Activity/Restrictions Activity: Normal Activity Return to Work or School: Jan 20, 2017 Follow-up Follow-up with Physician: 3, Day/Days (In clinic) Return to clinic for Comment: Continue to hydrate the patient at home Decrease nifedipine to 10 p.o. every 6 LAURA JOHNSON MD Jan 17, 2017 18:30
== END 2017-01-17 20:15 | disposition home or self-care (01) | DRG 781 ==
LOC: OBT 12:51 → L-D 12:53 → OBG 13:30 → OBT 13:31 → OBG 15:06
PROVIDERS: ADMIT Obstetrics & Gynecology; ATTEND Obstetrics & Gynecology
DX: O41.03X0 Oligohydramnios, third trimester, not applicable or unspecified (principal); O24.419 Gestational diabetes mellitus in pregnancy, unspecified control; O60.03 Preterm labor without delivery, third trimester; Z3A.32 32 weeks gestation of pregnancy
CPT/HCPCS: 76815; 82962; G0463; J7120

== ENCOUNTER 2017-01-28 11:28 | Inpatient (IN) | payer MEDICAID ==
[~2017-01-28] VITALS: Ht 152.4 cm; Wt 65.7 kg
[~2017-01-28 11:28] MED LIST changes: -NIFE10CA19 PO; +PREN-19 PO
[2017-01-28 12:17] VITALS: Ht 152.4 cm; Wt 65.7 kg
[2017-01-28 12:18] VITALS: BP 111/63; PULSE 75; RESP 16
--- NOTE | 2017-01-28 12:22 | RADRPT ---
PROCEDURE: OB ultrasound for biophysical profile CLINICAL INDICATION: Poor tone. TECHNIQUE: Multiple sonographic images of the pelvis were obtained. Transabdominal views of the g ravid uterus are available for review. The images were reviewed on a PACS workstation. COMPARISON: OB ultrasound for IRNA dated 01/17/2017 FINDINGS: breathing movement = 2/2 tone = 2/2 motion = 2/2 RINA = 2/2, with greatest vertical pocket more than 2 cm. RINA = 4.6 cm Single live intrauterine with cardiac activity of 131 bpm. position is cephal ic. The placenta is anterior. IMPRESSION: 1. Single live intrauterine gestation. 2. Biophysical profile = 11/05. 3. Oligohydramnios. RINA = 4.6 cm, decreased from 7.4 cm on the prior examination. RPTAT: HH .Radha Baez MD, Date Time Electronically viewed and signed by .Radha Baez MD, on 01/28/2017 12:22 .G/
[2017-01-28] MEDS: LACTATED RINGER'S 1,000 ML IV SCH ×3 (13:10→18:35)
--- NOTE | 2017-01-28 14:55 | HP ---
Date/Time of Note Date/Time of Note DATE: 01/28/17 TIME: 14:46 OB - History Hx of Present Free Text/Dictation C/O decreased FM X 1 day Has Hx of decreased amniotic fluid Has gestational DM Chief Complaint: NO movements Last Menstrual Period: Jun 10, 2016 Estimated Due Date: Mar 16, 2017 : 1 Para: 0 Care: Good Care Ultrasounds: Abnormal US findings (decreased amnitic fluid ) Obstetrical Complications: Gestational Diabetes, Other ( labor? ) Past Family/Social History * Past Medical, Surgical, Family and Obstetric Histories reviewed from chart. Blood Type: O+ Rubella: immune RPR/VDRL: Negative GBS Status: Unknown HBsAG: Negative OB Admission Exam Vital Signs Vital Signs Vital Signs Date Time Temp Pulse Resp B/P Pulse Ox O2 Delivery O2 Flow Rate FiO2 01/28/17 12:18 98.1 75 16 111/63 Physical Exam HEENT: WNL Heart: Rhythm Normal Lungs: Clear, Equal Abdomen: WNL Extremities: Normal Reflexes: Normal Cervical Dilatation: None Effacement: 0% Station: -3 Membranes: Intact Heart Rate: 150's Accelerations: Accelerations Present Decelerations: Early Decelerations Varibility: Marked Contractions on Admission: None OB Assessment/Plan Other Assessment: Oligohydramnios at 33+ weeks GDM Other plan: D/C nifedipine continue with diet IV hydration LAURA JOHNSON MD Jan 28, 2017 14:55
[2017-01-28] MEDS ORDERED: BETAMET NA PHOS/AC(6 MG/ML) 5ML INJ IM ONE (15:00)
[2017-01-28] MEDS: ACCU-CHEK XX SCH ×2 (17:03→21:24)
[2017-01-28] MEDS: INSULIN ASPART [NOVOLOG] 3 ML PEN SC SCH ×2 (17:05→21:32)
[2017-01-29] MEDS: LACTATED RINGER'S 1,000 ML IV SCH ×4 (00:56→20:49)
[2017-01-29] MEDS: ACCU-CHEK XX SCH ×4 (08:00→20:25)
--- NOTE | 2017-01-29 08:24 | RADRPT ---
PROCEDURE: Obstetrical ultrasound CLINICAL INDICATION: . OB ultrasound with fluid volume assessment. TECHNIQUE: Transabdominal sonographic images of the uterus obtained after first trimester , greater than 14 weeks gestation. Single intrauterine gestation present. Examination for fluid volu me assessment. COMPARISON: 01/28/2017 FINDINGS: Presentation: Cephalic Partially visualized placenta: anterior heart rate: 144 Beats per minute. IMPRESSION: Amniotic fluid index equals 4.0 cm, previously 4.6 cm. Oligohydramnios RPTAT: AADD .Mitch Caballero MD, MD Date Time Electronically viewed and signed by .Mitch Caballero MD, on 01/29/2017 08:24 .B/
[2017-01-29] MEDS: INSULIN ASPART [NOVOLOG] 3 ML PEN SC SCH ×2 (15:00→20:30)
[2017-01-29] MEDS ORDERED: BETAMET NA PHOS/AC(6 MG/ML) 5ML INJ IM ONE (15:00)
--- NOTE | 2017-01-29 17:43 | PN ---
Date/Time of Note Date/Time of Note DATE: 01/29/17 TIME: 17:42 OB Subjective Subjective Subjective No complaint of uterine contractions OB Objective Objective Objective Vital signs are stable general physical exam is unchanged heart tones are reactive OB Assessment/Plan Other Assessment: Oligohydramnios at 33+ weeks Gestational diabetes on diet Other plan: Per perinatologist continue to observe because of persistence of oligohydramnios LAURA JOHNSON MD Jan 29, 2017 17:43
[2017-01-30] MEDS: LACTATED RINGER'S 1,000 ML IV SCH ×4 (03:35→23:09)
[2017-01-30] MEDS: ACCU-CHEK XX SCH ×4 (08:00→20:04)
[2017-01-30] MEDS: INSULIN ASPART [NOVOLOG] 3 ML PEN SC SCH ×3 (10:00→20:03)
--- NOTE | 2017-01-30 16:57 | PN ---
Date/Time of Note Date/Time of Note DATE: 01/30/17 TIME: 16:55 OB Subjective Subjective Subjective No complaint of uterine contractions Feeling the baby move appropriately OB Objective Objective Objective Vital signs are stable Physical exam is unchanged heart tones are reactive Patient had oligohydramnios day prior OB Assessment/Plan Other Assessment: Oligohydramnios at 33+ weeks Stational diabetes Other plan: Continue to observe in hospital until fluid turns back to normal LAURA JOHNSON MD Jan 30, 2017 16:57
[2017-01-31] MEDS: LACTATED RINGER'S 1,000 ML IV SCH ×3 (05:49→19:57)
[2017-01-31] MEDS: ACCU-CHEK XX SCH ×4 (08:54→20:03)
[2017-01-31] MEDS: INSULIN ASPART [NOVOLOG] 3 ML PEN SC SCH ×3 (10:00→20:02)
--- NOTE | 2017-01-31 14:10 | PN ---
Date/Time of Note Date/Time of Note DATE: 01/31/17 TIME: 14:09 OB Subjective Subjective Subjective No major complaints OB Objective Objective Objective Vital signs stable General physical exam is unchanged since admission OB Assessment/Plan Reason for admission: other (Oligohydramnios) Other Assessment: 33+ weeks gestation Gestational diabetes Severely decreased amniotic fluid Other plan: Repeat amniotic fluid index Continue to observe LAURA JOHNSON MD Jan 31, 2017 14:10
--- NOTE | 2017-01-31 14:34 | RADRPT ---
PROCEDURE: US OB. CLINICAL INDICATION: Low RINA , pain TECHNIQUE: Transabdominal views of the pelvis are available for review. COMPARISON: US PELVIS 01/29/2017 FINDINGS: There is a single intrauterine gestation in a vertex position. The heart rate is noted at 154 bpm. The placenta is anterior. The RINA measures 5.7 cm. RPTAT: AA IMPRESSION: Oligohydramnios. .Bernard Samayoa MD, MD Date Time Electronically viewed and signed by .Bernard Samayoa MD, MD on 01/31/2017 14:34 .S/
[2017-01-31] MEDS ORDERED: SENNA TAB PO PRN (15:00)
[2017-01-31] MEDS ORDERED: MEPERIDINE 25 MG INJ IV ONE (20:00)
--- NOTE | 2017-01-31 20:03 | RADRPT ---
PROCEDURE: Right upper quadrant abdominal ultrasound. CLINICAL INDICATION: Abdominal pain TECHNIQUE: Og scale and color doppler ultrasound images of the right upper quadrant of the abdom en. COMPARISON: None FINDINGS: Pancreas: Visualized portions appear of normal echogenicity without focal lesions. Liver: Morphology:Normal in size. Contour:Normal, no evidence of nodularity. Echogenicity: Normal. Focal lesions:None. Main portal vein: Patent with hepatopetal flow. Biliary System: Gallbladder wall: Normal thickness. Gallstones: None. Intrahepatic bile ducts: Normal caliber. Common bile duct diameter (mm): 3.4 Kidneys: Right length (cm) : 11.1 Right cortical thickness: Normal. Echogenicity: Normal. Hydronephrosis: Mild Renal calculi: None. Focal lesions: None. Free fluid/ascites: None. Abdominal aorta: Not visualized by the plastic outfitter. Other findings: None. IMPRESSION: Normal gallbladder without gallstones. Mild right-sided hydronephrosis. RPTAT: AADD .Mitch Caballero MD, MD Date Time Electronically viewed and signed by .Mitch Caballero MD, on 01/31/2017 20:03 .B/
[2017-01-31 20:28] LABS: BASOPHILS % 0.3 % (0.0-2.0); EOSINOPHILS % 0.2 % (0.0-7.0); HEMATOCRIT 31.9 % (37.0-47.0); HEMOGLOBIN 10.5 g/dl (12.0-16.0); LYMPHOCYTES # 3.8 10^3/ul (0.8-2.9); LYMPHOCYTES % 27.8 % (15.0-51.0); MEAN CORPUSCULAR HEMOGLOBIN 29.9 pg (29.0-33.0); MEAN CORPUSCULAR HGB CONC 32.9 g/dl (32.0-37.0); MEAN CORPUSCULAR VOLUME 90.9 fl (82.0-101.0); MEAN PLATELET VOLUME 9.8 fl (7.4-10.4); MONOCYTE # 0.8 10^3/ul (0.3-0.9); MONOCYTES % 5.8 % (0.0-11.0); NEUTROPHILS % 65.2 % (39.0-77.0); PLATELET COUNT 257 10^3/UL (140-415); RED BLOOD COUNT 3.51 10^6/ul (4.20-5.40); RED CELL DISTRIBUTION WIDTH 13.5 % (11.5-14.5); WHITE BLOOD COUNT 13.8 10^3/ul (4.8-10.8)
[2017-01-31] MEDS: MAGNESIUM HYDROXIDE 30ML CUP PO PRN (23:49)
[2017-02-01] MEDS: LACTATED RINGER'S 1,000 ML IV SCH ×3 (03:53→20:05)
[2017-02-01] MEDS: ACCU-CHEK XX SCH ×3 (07:30→20:05)
[2017-02-01 07:34] LABS: ALBUMIN/GLOBULIN RATIO 0.9; BILIRUBIN,INDIRECT 0.2 mg/dl (0-1.1); BILIRUBIN,TOTAL 0.2 mg/dl (0.2-1.3); CALCIUM 8.9 mg/dl (8.4-10.2); CREATININE 0.64 mg/dl (0.44-1.00); POTASSIUM 3.5 mmol/L (3.5-5.1); TOTAL PROTEIN 6.3 g/dl (6.1-8.1)
[2017-02-01] MEDS ORDERED: MAGNESIUM SULFATE 4 GM/100 ML 100 ML IV ONE (08:30)
[2017-02-01] MEDS ORDERED: DEXTROSE 5%-LR 1,000 ML IV PRN (08:30)
[2017-02-01] MEDS: MAGNESIUM SULFATE 20 GM/500 ML 500 ML IV SCH ×2 (08:52→18:01)
[2017-02-01 12:13] LABS: ADD UMIC YES; UR ASCORBIC ACID NEGATIVE (NEGATIVE); UR BACTERIA FEW /HPF (NONE SEEN); UR BILIRUBIN (Dip) NEGATIVE (NEGATIVE); UR BLOOD (Dip) 2+ mg/dL (NEGATIVE); UR CLARITY CLEAR (CLEAR); UR COLOR COLORLESS (YELLOW); UR GLUCOSE (Dip) NEGATIVE (NEGATIVE); UR KETONES (Dip) TRACE mg/dL (NEGATIVE); UR LEUKOCYTE ESTERASE (Dip) TRACE Leu/ul (NEGATIVE); UR NITRITE (Dip) NEGATIVE (NEGATIVE); UR RBC 0 /HPF (0-5); UR SPECIFIC GRAVITY (Dip) 1.005 (1.003-1.030); UR SQUAMOUS EPITHELIAL CELL FEW /HPF (FEW); UR TOTAL PROTEIN (Dip) NEGATIVE (NEGATIVE); UR UROBILINOGEN (Dip) NEGATIVE (NEGATIVE)
--- NOTE | 2017-02-01 13:02 | PN ---
Date/Time of Note Date/Time of Note DATE: 02/01/17 TIME: 12:59 OB Subjective Subjective Subjective Complaining of onset of uterine contractions OB Objective Objective Objective Vital signs is stable currently General physical exam is unchanged Currently on magnesium sulfate started by on-call physician Cervical exam by on-call physician was 2 cm with 50% effacement On electronic monitoring uterine contractions seen every 5/ 7 minutes Patient remains without serious symptoms OB Assessment/Plan Other Assessment: labor at 33 weeks Oligohydramnios Slowly resolving contractions Gestational diabetes Other plan: We will continue magnesium sulfate for 24 hours Continue to observe patient in hospital Repeat amniotic fluid index next day LAURA JOHNSON MD Feb 01, 2017 13:02
[2017-02-01 13:19] LABS: BASOPHILS % 0.2 % (0.0-2.0); EOSINOPHILS % 0.2 % (0.0-7.0); HEMATOCRIT 33.6 % (37.0-47.0); HEMOGLOBIN 11.5 g/dl (12.0-16.0); LYMPHOCYTES # 3.2 10^3/ul (0.8-2.9); LYMPHOCYTES % 24.1 % (15.0-51.0); MEAN CORPUSCULAR HEMOGLOBIN 31.3 pg (29.0-33.0); MEAN CORPUSCULAR HGB CONC 34.2 g/dl (32.0-37.0); MEAN CORPUSCULAR VOLUME 91.6 fl (82.0-101.0); MEAN PLATELET VOLUME 9.9 fl (7.4-10.4); MONOCYTE # 0.8 10^3/ul (0.3-0.9); MONOCYTES % 5.8 % (0.0-11.0); NEUTROPHIL # 9.1 10^3/ul (1.6-7.5); NEUTROPHILS % 69.1 % (39.0-77.0); PLATELET COUNT 281 10^3/UL (140-415); RED BLOOD COUNT 3.67 10^6/ul (4.20-5.40); RED CELL DISTRIBUTION WIDTH 13.2 % (11.5-14.5); WHITE BLOOD COUNT 13.1 10^3/ul (4.8-10.8)
[2017-02-01 13:34] LABS: INR 0.83; PROTIME 11.4 Sec (12.2-14.2); PT RATIO 0.9
[2017-02-01] MEDS: FERROUS SULFATE (EC) 325 MG TAB PO SCH (20:02)
[2017-02-01] MEDS: PRENATAL VITAMIN PO SCH (20:03)
[2017-02-01] MEDS: INSULIN ASPART [NOVOLOG] 3 ML PEN SC SCH ×2 (20:03→20:04)
[2017-02-02] MEDS: LACTATED RINGER'S 1,000 ML IV SCH ×5 (01:13→20:19)
[2017-02-02] MEDS: MAGNESIUM SULFATE 20 GM/500 ML 500 ML IV SCH (03:41)
[2017-02-02] MEDS: ACCU-CHEK XX SCH ×4 (08:11→19:26)
--- NOTE | 2017-02-02 09:36 | RADRPT ---
PROCEDURE: US evaluation of amniotic fluid volume. CLINICAL INDICATION: Low amniotic fluid volume. TECHNIQUE: Multiple sonographic images of the gravid uterus were obtained utilizing bhandari-scale artemio ging. Sagittal and transverse images were obtained. The images were reviewed on a PACS workstation . RINA was measured. COMPARISON: 12/31/2016 FINDINGS: There is a single live intrauterine . heart rate is 136 beats per minute. Position is cephalic. Placenta is anterior grade II with no abruption or previa. RINA is 5.0 cm. (Normal = 5-20 cm.) IMPRESSION: 1. RINA is 5.0 cm. RPTAT: QQ .Noe Goldstein MD, Date Time Electronically viewed and signed by .Noe Goldstein MD, on 02/02/2017 09:36 .R/
[2017-02-02] MEDS: INSULIN ASPART [NOVOLOG] 3 ML PEN SC SCH ×3 (10:00→20:05)
[2017-02-02] MEDS: PRENATAL VITAMIN PO SCH (10:09)
[2017-02-02] MEDS: MAGNESIUM HYDROXIDE 30ML CUP PO PRN (10:09)
--- NOTE | 2017-02-02 16:44 | PN ---
Date/Time of Note Date/Time of Note DATE: 02/02/17 TIME: 16:42 OB Subjective Subjective Subjective No complaint of uterine contractions OB Objective Objective Objective Vital signs are stable General physical exam is unchanged On electronic monitoring no uterine contractions seen We will try to DC magnesium sulfate and start on p.o. medication OB Assessment/Plan Reason for admission: active labor Other Assessment: Oligohydramnios at 34 weeks Other plan: DC magnesium sulfate Start on p.o. tocolytics Continue to observe amniotic fluid and LAURA JOHNSON MD Feb 02, 2017 16:44
[2017-02-02] MEDS: FERROUS SULFATE (EC) 325 MG TAB PO SCH (18:37)
[2017-02-02] MEDS: NIFEdipine 10 MG CAP PO SCH (23:32)
[2017-02-03] MEDS: LACTATED RINGER'S 1,000 ML IV SCH ×6 (00:01→19:00)
[2017-02-03] MEDS: NIFEdipine 10 MG CAP PO SCH ×3 (06:01→23:49)
[2017-02-03] MEDS: ACCU-CHEK XX SCH ×4 (08:20→19:30)
[2017-02-03] MEDS: PRENATAL VITAMIN PO SCH (10:04)
[2017-02-03] MEDS: FERROUS SULFATE (EC) 325 MG TAB PO SCH (10:04)
[2017-02-03] MEDS: INSULIN ASPART [NOVOLOG] 3 ML PEN SC SCH ×3 (11:10→19:30)
--- NOTE | 2017-02-03 15:58 | PN ---
Date/Time of Note Date/Time of Note DATE: 02/03/17 TIME: 15:56 OB Subjective Subjective Subjective Normal complaint of uterine contractions OB Objective Objective Objective Vital signs are stable heart tones are reactive General physical exam is unchanged On electronic monitoring no uterine contractions seen OB Assessment/Plan Other Assessment: Oligohydramnios at 34+ weeks Gestational diabetes Resolved contractions Other plan: Continue to observe on monitor heart tones LAURA JOHNSON MD Feb 03, 2017 15:58
[2017-02-04] MEDS: LACTATED RINGER'S 1,000 ML IV SCH ×4 (00:01→17:34)
[2017-02-04] MEDS: NIFEdipine 10 MG CAP PO SCH ×4 (05:54→17:35)
[2017-02-04] MEDS: ACCU-CHEK XX SCH ×4 (08:21→19:56)
[2017-02-04] MEDS: FERROUS SULFATE (EC) 325 MG TAB PO SCH (09:06)
[2017-02-04] MEDS: PRENATAL VITAMIN PO SCH (09:06)
[2017-02-04] MEDS: INSULIN ASPART [NOVOLOG] 3 ML PEN SC SCH ×3 (11:00→19:57)
--- NOTE | 2017-02-04 15:56 | PN ---
Date/Time of Note Date/Time of Note DATE: 02/04/17 TIME: 15:55 OB Subjective Subjective Subjective No major complaint No complaint of uterine contractions OB Objective Objective Objective Vital signs stable General physical exam is unchanged On electronic monitoring no uterine contractions seen OB Assessment/Plan Other Assessment: Regards insomnia is at 34+ weeks uterine contractions that resolved Other plan: Continue to observe patient per perinatologist LAURA JOHNSON MD Feb 04, 2017 15:56
[2017-02-05] MEDS: NIFEdipine 10 MG CAP PO SCH ×4 (00:22→18:03)
[2017-02-05] MEDS: LACTATED RINGER'S 1,000 ML IV SCH ×2 (01:10→08:48)
[2017-02-05] MEDS: ACCU-CHEK XX SCH ×4 (07:38→20:08)
[2017-02-05] MEDS: FERROUS SULFATE (EC) 325 MG TAB PO SCH (08:50)
[2017-02-05] MEDS: PRENATAL VITAMIN PO SCH (08:50)
--- NOTE | 2017-02-05 09:00 | RADRPT ---
PROCEDURE: US OB. CLINICAL INDICATION: Low RINA , pain TECHNIQUE: Transabdominal views of the pelvis are available for review. COMPARISON: US 02/02/2017 FINDINGS: There is a single intrauterine gestation in a vertex position. The heart rate is noted at 144 bpm. The placenta is anterior. The RINA measures 5.7 cm. RPTAT: AA IMPRESSION: Oligohydramnios, not significantly changed. .Bernard Samayoa MD, MD Date Time Electronically viewed and signed by .Bernard Samayoa MD, MD on 02/05/2017 09:00 .S/
[2017-02-05] MEDS: INSULIN ASPART [NOVOLOG] 3 ML PEN SC SCH ×3 (11:00→20:05)
--- NOTE | 2017-02-05 18:47 | PN ---
Date/Time of Note Date/Time of Note DATE: 02/05/17 TIME: 18:46 OB Subjective Subjective Subjective No complaint of uterine contractions OB Objective Objective Objective Vital signs are stable General physical exam is unchanged and normal Amniotic fluid index today was 5.7 OB Assessment/Plan Reason for admission: labor Other Assessment: Decrease amniotic fluid Other plan: Continue to monitor vital signs and check amniotic fluid index We consulted perinatologist if needed LAURA JOHNSON MD Feb 05, 2017 18:47
[2017-02-06] MEDS: NIFEdipine 10 MG CAP PO SCH ×5 (00:01→23:50)
[2017-02-06] MEDS: ACCU-CHEK XX SCH ×4 (09:23→20:44)
[2017-02-06] MEDS: FERROUS SULFATE (EC) 325 MG TAB PO SCH (09:24)
[2017-02-06] MEDS: PRENATAL VITAMIN PO SCH (09:24)
[2017-02-06] MEDS: INSULIN ASPART [NOVOLOG] 3 ML PEN SC SCH ×3 (10:00→20:13)
--- NOTE | 2017-02-06 18:15 | PN ---
Date/Time of Note Date/Time of Note DATE: 02/06/17 TIME: 18:12 OB Subjective Subjective Subjective No complaint of uterine contractions No complaint of decreased movement OB Objective Objective Objective Vital signs are stable General physical exam is unchanged On electronic monitoring occasional and infrequent variable deceleration of heart tones seen OB Assessment/Plan Other Assessment: Oligohydramnios at 34+ weeks contractions Other plan: Constant continue to observe patient in house per perinatologist Recommendation was made to deliver patient at 37 weeks LAURA JOHNSON MD Feb 06, 2017 18:15
[2017-02-07] MEDS: NIFEdipine 10 MG CAP PO SCH ×3 (05:51→17:48)
[2017-02-07] MEDS: ACCU-CHEK XX SCH ×4 (08:14→20:07)
[2017-02-07] MEDS: FERROUS SULFATE (EC) 325 MG TAB PO SCH (08:44)
[2017-02-07] MEDS: PRENATAL VITAMIN PO SCH (08:44)
[2017-02-07] MEDS: INSULIN ASPART [NOVOLOG] 3 ML PEN SC SCH ×2 (10:00→14:00)
--- NOTE | 2017-02-07 14:58 | PN ---
Date/Time of Note Date/Time of Note DATE: 02/07/17 TIME: 14:56 OB Subjective Subjective Subjective No complaint of uterine contractions Normal movements reported OB Objective Objective Objective Vital signs are stable in general physical exam unchanged heart tones are reactive with occasional variable deceleration of FHTs OB Assessment/Plan Reason for admission: labor Other Assessment: Oligohydramnios 34+ weeks gestation contractions subsided Other plan: We will continue to observe until 37 weeks and delivered at 37 weeks DC nifedipine at 36 weeks per perinatology recommendation LAURA JOHNSON MD Feb 07, 2017 14:58
[2017-02-08] MEDS: NIFEdipine 10 MG CAP PO SCH ×5 (00:09→23:55)
[2017-02-08] MEDS: ACCU-CHEK XX SCH ×4 (07:56→20:05)
--- NOTE | 2017-02-08 07:56 | RADRPT ---
PROCEDURE: US biophysical profile. CLINICAL INDICATION: Oligohydramnios. TECHNIQUE: Multiple sonographic images of the uterus were obtained. The images were revi ewed on a PACS workstation. COMPARISON: No prior studies are available for comparison. FINDINGS: There is a single live intrauterine gestation. heart rate is 157 beats per minute. The position is cephalic. The placenta is anterior grade II with no abruption or previa. The RINA is 5.1 cm. (Normal = 5-20 cm.) Breathing Movement: 2 Gross Body Movement: 2 Tone: 2 Qualitative Amniotic Fluid Volume: 2 TOTAL: 8 IMPRESSION: 1. The biophysical score is 8/8. RPTAT: QQ .Noe Goldstein MD, MD Date Time Electronically viewed and signed by .Noe Goldstein MD, on 02/08/2017 07:56 .R/
--- NOTE | 2017-02-08 08:02 | RADRPT ---
PROCEDURE: Obstetrical ultrasound CLINICAL INDICATION: oligohydramnios TECHNIQUE: Multiple sonographic images of the pelvis were obtained. The images were reviewed on a PACS workstation. COMPARISON: Obstetrical ultrasound from 02/05/2017 FINDINGS: The cervix is not well visualized. There is a single viable intrauterine gestation. Cardiac activity is present with 139 beats per minute. There is a vertex presentation. The placenta is anterior. There is no evidence for an abruption or placenta previa. There is a low amount of amniotic fluid with an RINA = 5.1 cm. Measurements were made in order to determine age. The results are as follows (cm): BPD =8.19 HC =29.48 AC =28.26 FL =6.36 Estimated gestational age by ultrasound of approximately 32 weeks, 5 days. The estimated date of delivery by ultrasound is 03/31/2017. Estimated gestational age by LMP of approximately 34 weeks, 6 days. The estimated date of delivery by LMP is 03/16/2017. EFW = 1998 grams (4th percentile) IMPRESSION: Single viable intrauterine gestation of approximately 32 weeks, 5 days . The estimated date of delivery is 03/31/2017 . Dating by ultrasound is within 15 days of dating by LMP. Oligohydramnios with an RINA of 5.1 cm, compared with an RINA of 5.7 cm on 02/05/2017. Cephalic presentation. Estimated weight of 1998 g which is in the 4th percentile. RPTAT: EE Physician Jessy Date Time Electronically viewed and signed by Physician Jessy on 02/08/2017 08:02 /
[2017-02-08] MEDS: PRENATAL VITAMIN PO SCH (09:35)
[2017-02-08] MEDS: FERROUS SULFATE (EC) 325 MG TAB PO SCH (09:35)
--- NOTE | 2017-02-08 15:44 | PERINOTE ---
Date/Time of Note Date/Time of Note DATE: 02/08/17 TIME: 15:37 Assessment/Recommendations Other Assessments Baseline oligohydramnios, with minimal change since admission. Please note that the "RINA" has been shown to overdiagnose oligohydramnios and this may be normal for this patient Possible growth restriction Recommendations: Would follow with weekly BPP and umbilical artery Doppler Would consider intervention earlier than 37 weeks only if the BPP decreases or the Doppler indicates absent or reversed end-diastolic flow. OB Subjective Free Text/Dictaton Patient with known low RINA admitted for decreased movement. I was asked to reconsult as a recent ultrasound is suspicious for IUGR HD# 12 IUP @ 34W6D Complaints/Overnight events Patient denies UCs, bleeding or loss of fluid PV. She reports active movement. Recent US shows possible IUGR Current Medications Current Medications Diagnostic Test (Pha) (Accu-Chek) 1 ea FBSPP XX Last administered on 14:05; Admin Dose 1 EA; Start 01/28/17 at 14:00 Ferrous Sulfate (Ferrous Sulfate (Ec)) 325 mg DAILY PO Last administered on 09:35; Admin Dose 325 MG; Start 02/01/17 at 09:00 Prenat Multivit/ [place]/Iron/Folic Ac () 1 tab DAILY PO Last administered on 02/08/17 09:35; Admin Dose 1 TAB; Start 02/01/17 at 09:00 Magnesium Hydroxide (Milk Of Mag) 30 ml BID PRN PO CONSTIPATION Last administered on 02/02/17 10:09; Admin Dose 30 ML; Start 01/31/17 at 15:00 Senna (Senokot) 2 tab BID PRN PO CONSTIPATION Last administered on 01/31/17 23 :49; Admin Dose 2 TAB; Start 01/31/17 at 15:00 Nifedipine (Procardia) 10 mg Q6 PO Last administered on 02/08/17 11:49; Admin Dose 10 MG; Start 02/03/17 at 00:00 OB Admission Exam Physical Exam Vitals: BP: 110/61 Abdomen: WNL Heart Rate: 130's Accelerations: Accelerations Present Decelerations: No Decelerations Varibility: Moderate Contractions on Admission: None Last 72 hourBlood Glucose Bedside Glucose - 72 Hours Test 02/05/17 19:57 02/06/17 08:38 02/06/17 11:08 02/06/17 16:06 Bedside Glucose 86mg/dL (70-220) 73mg/dL (70-220) 83mg/dL (70-220) 113mg/dL (70-220) Test 02/06/17 20:07 02/07/17 08:40 02/07/17 11:10 02/07/17 14:36 Bedside Glucose 142mg/dL (70-220) 68mg/dL (70-220) L 81mg/dL (70-220) 99mg/dL (70-220) Test 02/07/17 20:07 02/08/17 08:04 02/08/17 10:56 02/08/17 15:32 Bedside Glucose 125mg/dL (70-220) 77mg/dL (70-220) 126mg/dL (70-220) 94mg/dL (70-220) Ultrasound Results EFW 1998g Position Vertex BPP 11/05 RINA 5.1cm Ultrasound Comments: US of 02/08/17 Copies To: CC: LAURA JOHNSON MD, MARIE H MD Feb 08, 2017 15:44
--- NOTE | 2017-02-08 16:39 | RADRPT ---
PROCEDURE: Umbilical artery Doppler. CLINICAL INDICATION: Small for gestational age. TECHNIQUE: Multiple sonographic images of the gravid uterus were obtained utilizing bhandari-scale artemio ging. Sagittal and transverse images were obtained. Umbilical artery Doppler was performed. The i mages were reviewed on a PACS workstation. COMPARISON: No prior studies are available for comparison. FINDINGS: There is a single live intrauterine . heart rate is 146 beats per minute. The umbilical artery systolic to diastolic ratio is 2.1 proximally. The umbilical artery systolic to diastolic ratio is 3.4 in the midportion. The umbilical artery systolic to diastolic ratio is 2.1 distally. IMPRESSION: 1. The umbilical artery systolic to diastolic ratio is between 2.1 and 3.4. RPTAT: QQ .Noe Goldstein MD, Date Time Electronically viewed and signed by .Noe Goldstein MD, on 02/08/2017 16:38 .R/
--- NOTE | 2017-02-08 17:18 | PN ---
Date/Time of Note Date/Time of Note DATE: 02/08/17 TIME: 17:15 OB Subjective Subjective Subjective Reports movement No major complaints OB Objective Objective Objective General physical exam is unchanged and vital signs are stable Ultrasound today showing RINA of 5.1 Estimation of weight by ultrasound is about 4855-0855 g indicating growth restriction OB Assessment/Plan Other Assessment: labor 34 weeks and 6 days gestation Possible intrauterine growth retardation Low RINA Other plan: Per perinatology recommendation will follow the patient by Doppler study of umbilical cord and SD ratio This service prefers patient to stay in-house until 37 weeks of gestation undelivered baby at 37 weeks LAURA JOHNSON MD Feb 08, 2017 17:18
[2017-02-09] MEDS: NIFEdipine 10 MG CAP PO SCH ×3 (06:02→17:31)
[2017-02-09] MEDS: ACCU-CHEK XX SCH ×4 (08:00→20:20)
[2017-02-09] MEDS: FERROUS SULFATE (EC) 325 MG TAB PO SCH (09:52)
[2017-02-09] MEDS: PRENATAL VITAMIN PO SCH (09:52)
--- NOTE | 2017-02-09 20:35 | PN ---
Date/Time of Note Date/Time of Note DATE: 02/09/17 TIME: 20:33 OB Subjective Subjective Subjective No complaint of uterine contractions Claims the baby is moving well OB Objective Objective Objective Vital signs stable General physical exam is unchanged Perinatology recommendations notice OB Assessment/Plan Reason for admission: labor Other Assessment: Growth retarded Decreased amniotic fluid 35 weeks Other plan: We will continue to observe Obtain an earlier ultrasound or very early ultrasound to confirm EDC Continue to observe in-house with persistent uterine & heart tones monitored LAURA JOHNSON MD Feb 09, 2017 20:35
[2017-02-10] MEDS: NIFEdipine 10 MG CAP PO SCH ×4 (00:04→17:47)
[2017-02-10] MEDS: ACCU-CHEK XX SCH ×4 (07:30→20:05)
[2017-02-10] MEDS: FERROUS SULFATE (EC) 325 MG TAB PO SCH (08:55)
[2017-02-10] MEDS: PRENATAL VITAMIN PO SCH (08:55)
--- NOTE | 2017-02-10 12:28 | PN ---
Date/Time of Note Date/Time of Note DATE: 02/10/17 TIME: 12:25 OB Subjective Subjective Subjective No C/O uterine contraction vlaims the baby moving well OB Objective Objective Objective VSS general P/E is normal and unchanged FHTs are reactive OB Assessment/Plan Other Assessment: labor is resolved decreased amnitic fluid is stable IUGR is noticed Other plan: continue to observe deliver at 37 weeks LAURA JOHNSON MD Feb 10, 2017 12:28
[2017-02-11] MEDS: NIFEdipine 10 MG CAP PO SCH ×4 (00:02→18:08)
[2017-02-11] MEDS: ACCU-CHEK XX SCH ×4 (09:00→20:06)
[2017-02-11] MEDS: FERROUS SULFATE (EC) 325 MG TAB PO SCH (11:08)
[2017-02-11] MEDS: PRENATAL VITAMIN PO SCH (11:08)
--- NOTE | 2017-02-11 14:35 | PN ---
Date/Time of Note Date/Time of Note DATE: 02/11/17 TIME: 14:33 OB Subjective Subjective Subjective No complaint of labor contractions OB Objective Objective Objective Vital signs stable General physical exam is unchanged heart tones are reactive OB Assessment/Plan Reason for admission: labor Other Assessment: Possible growth restriction of the infant Gestational diabetes labor controlled Other plan: continue to observe LAURA JOHNSON MD Feb 11, 2017 14:35
--- NOTE | 2017-02-11 16:23 | RADRPT ---
PROCEDURE: US OB. CLINICAL INDICATION: labor , pain TECHNIQUE: Transabdominal views of the pelvis are available for review. COMPARISON: US 02/08/2017 FINDINGS: There is a single intrauterine gestation in a vertex position. The heart rate is noted at 140 bpm. The placenta is anterior. The RINA measures 7.9 cm. RPTAT: AA IMPRESSION: Borderline decreased RINA. .Bernard Samayoa MD, MD Date Time Electronically viewed and signed by .Bernard Samayoa MD, MD on 02/11/2017 16:23 .S/
[2017-02-12] MEDS: NIFEdipine 10 MG CAP PO SCH ×4 (00:28→18:02)
[2017-02-12] MEDS: ACCU-CHEK XX SCH ×4 (08:50→20:05)
[2017-02-12] MEDS: PRENATAL VITAMIN PO SCH (09:25)
[2017-02-12] MEDS: FERROUS SULFATE (EC) 325 MG TAB PO SCH (09:25)
--- NOTE | 2017-02-12 19:46 | PN ---
Date/Time of Note Date/Time of Note DATE: 02/12/17 TIME: 19:45 OB Subjective Subjective Subjective No complaint of uterine contractions According to patient baby is moving well OB Objective Objective Objective Vital signs are stable in general physical exam is normal heart tones are reactive RINA today was 7.9 OB Assessment/Plan Reason for admission: labor Other Assessment: Growth retarded 35+ weeks gestation Other plan: We will deliver at 37 weeks promptly LAURA JOHNSON MD Feb 12, 2017 19:46
[2017-02-13] MEDS: NIFEdipine 10 MG CAP PO SCH ×5 (00:07→23:51)
[2017-02-13] MEDS: ACCU-CHEK XX SCH ×4 (08:59→21:02)
[2017-02-13] MEDS: FERROUS SULFATE (EC) 325 MG TAB PO SCH (09:00)
[2017-02-13] MEDS: PRENATAL VITAMIN PO SCH (09:00)
--- NOTE | 2017-02-13 17:38 | PN ---
Date/Time of Note Date/Time of Note DATE: 02/13/17 TIME: 17:36 OB Subjective Subjective Subjective No complaint of uterine contractions Feels the baby is moving well OB Objective Objective Objective Vital signs are stable General physical exam is unchanged heart tones are reactive OB Assessment/Plan Reason for admission: labor Other Assessment: Decrease amniotic fluid 35+ weeks gestation Other plan: Continue to observe patient in house Repeat RINA next day If RINA stayed elevated possibly DC patient home LAURA JOHNSON MD Feb 13, 2017 17:38
[2017-02-14] MEDS: NIFEdipine 10 MG CAP PO SCH ×4 (05:45→23:58)
[2017-02-14] MEDS: ACCU-CHEK XX SCH ×4 (08:06→20:05)
[2017-02-14] MEDS: PRENATAL VITAMIN PO SCH (08:46)
[2017-02-14] MEDS: FERROUS SULFATE (EC) 325 MG TAB PO SCH (08:46)
--- NOTE | 2017-02-14 15:56 | RADRPT ---
PROCEDURE: US biophysical profile. CLINICAL INDICATION: Low amniotic fluid volume. TECHNIQUE: Multiple sonographic images of the uterus were obtained. The images were revi ewed on a PACS workstation. COMPARISON: 02/08/2017. FINDINGS: There is a single live intrauterine gestation. heart rate is 152 beats per minute. The position is cephalic. The placenta is anterior grade II with no abruption or previa. The RINA is 8.3 cm. (Normal = 5-20 cm.) Breathing Movement: 2 Gross Body Movement: 2 Tone: 2 Qualitative Amniotic Fluid Volume: 2 TOTAL: 8 IMPRESSION: 1. The biophysical score is 8/8. RPTAT: QQ .Noe Goldstein MD, MD Date Time Electronically viewed and signed by .Noe Goldstein MD, on 02/14/2017 15:56 .R/
[2017-02-15] MEDS: NIFEdipine 10 MG CAP PO SCH ×2 (05:47→11:50)
[2017-02-15] MEDS: ACCU-CHEK XX SCH ×3 (07:30→14:26)
[2017-02-15] MEDS: FERROUS SULFATE (EC) 325 MG TAB PO SCH (08:58)
[2017-02-15] MEDS: PRENATAL VITAMIN PO SCH (08:58)
--- NOTE | 2017-02-15 14:23 | PERINOTE ---
Date/Time of Note Date/Time of Note DATE: 02/15/17 TIME: 14:19 Assessment/Recommendations Other Assessments Intrauterine at 35 weeks and 6 days of gestation Persistent oligohydramnios, now apparently resolved. Recommendations: I would be in favor of discharging this patient to home, with twice weekly follow-up for NST and RINA in the perinatology office. If the amniotic fluid index remains in the normal range I would favor following this is a normal and allowing normal delivery. OB Subjective Free Text/Dictaton Patient admitted with low amniotic fluid index. HD# 19 IUP @ 35W6D Complaints/Overnight events Recent amniotic fluid index was 8.3 cm, within the normal range. The patient denies symptoms of bleeding, loss of fluid vaginally, or uterine contractions. She reports active movement. Current Medications Current Medications Diagnostic Test (Pha) (Accu-Chek) 1 ea FBSPP XX Last administered on 10:21; Admin Dose 1 EA; Start 01/28/17 at 14:00 Ferrous Sulfate (Ferrous Sulfate (Ec)) 325 mg DAILY PO Last administered on 08:58; Admin Dose 325 MG; Start 02/01/17 at 09:00 Prenat Multivit/ [place]/Iron/Folic Ac () 1 tab DAILY PO Last administered on 02/15/17 08:58; Admin Dose 1 TAB; Start 02/01/17 at 09:00 Magnesium Hydroxide (Milk Of Mag) 30 ml BID PRN PO CONSTIPATION Last administered on 02/02/17 10:09; Admin Dose 30 ML; Start 01/31/17 at 15:00 Senna (Senokot) 2 tab BID PRN PO CONSTIPATION Last administered on 01/31/17 23 :49; Admin Dose 2 TAB; Start 01/31/17 at 15:00 Nifedipine (Procardia) 10 mg Q6 PO Last administered on 02/15/17 11:50; Admin Dose 10 MG; Start 02/03/17 at 00:00 OB Admission Exam Physical Exam Abdomen: WNL Heart Rate: 140's Accelerations: Accelerations Present Decelerations: No Decelerations Varibility: Moderate Contractions on Admission: None Last 72 hourBlood Glucose Bedside Glucose - 72 Hours Test 02/12/17 14:50 02/12/17 20:08 02/13/17 08:56 02/13/17 11:32 Bedside Glucose 101mg/dL (70-220) 105mg/dL (70-220) 76mg/dL (70-220) 86mg/dL (70-220) Test 02/13/17 14:14 02/13/17 20:17 02/14/17 08:43 02/14/17 11:04 Bedside Glucose 99mg/dL (70-220) 113mg/dL (70-220) 73mg/dL (70-220) 125mg/dL (70-220) Test 02/14/17 14:42 02/14/17 19:17 02/15/17 08:57 02/15/17 12:22 Bedside Glucose 115mg/dL (70-220) 117mg/dL (70-220) 77mg/dL (70-220) 79mg/dL (70-220) Copies To: CC: LAURA JOHNSON MD, MARIE H MD Feb 15, 2017 14:23
--- NOTE | 2017-02-15 16:04 | PN ---
Date/Time of Note Date/Time of Note Late entry DATE: 02/14/17 TIME: 16:03 OB Subjective Subjective Subjective No major complaints OB Objective Objective Objective Signs stable in general physical exam is normal Biophysical profile and RINA ordered heart tones are reactive OB Assessment/Plan Reason for admission: labor Other Assessment: Oligohydramnios Other plan: We will obtain RINA results in DC patient home next day if RINA is normal LAURA JOHNSON MD Feb 15, 2017 16:04
--- NOTE | 2017-02-15 16:06 | DS ---
Date/Time of Note Date/Time of Note DATE: 02/15/17 TIME: 16:05 Discharge Summary Admission/Discharge Info Admit Date/Time Jan 28, 2017 at 12:20 Discharge Date/Time February 15, 2070 Discharge Diagnosis contractions Gestational diabetes growth restriction Oligohydramnios which is resolved Patient Condition: Good Procedures Observation Hx of Present Illness 37-year-old female admitted at 34 weeks with oligohydramnios and oligohydramnios over time was resolved Hospital Course Uncomplicated Home Meds Reported Medications Vit #76/Iron,Carb/FA (Prenatabs Rx Tablet) 1 Each Tablet, 1 EACH PO, TAB 01/16/17 Follow-up Plan 2 days in clinic Needs follow-up with antepartum units biweekly Primary Care Provider Not On Staff Doctor Time spent on discharge: > 30 minutes Pending Labs Laboratory Tests Test 02/14/17 19:17 02/15/17 08:57 02/15/17 12:22 02/15/17 15:29 Bedside Glucose 117mg/dL (70-220) 77mg/dL (70-220) 79mg/dL (70-220) 93mg/dL (70-220) LAURA JOHNSON MD Feb 15, 2017 16:06
--- NOTE | 2017-02-15 16:07 | DS ---
Date/Time of Note Date/Time of Note DATE: 02/15/17 TIME: 16:06 Obstetrical Discharge Record Final Diagnosis Final Diagnosis: not delivered Other Final Diagnosis labor Gestational diabetes growth restriction Oligohydramnios Complications Labor, Gestational Diabetes Tocolytics: Other (Nifedipine) Condition on Discharge Physical Assessment Last Vitals: See nurse's notes Voiding: Yes Bowel Movement: Yes Breast: Soft, non-tender, Filling Fundus: Other () Abdomen and Incision: Gravid Episiotomy: Not applicable Calf Tenderness: No Patient Condition: Good (We will follow as outpatient) LAURA JOHNSON MD Feb 15, 2017 16:07
--- NOTE | 2017-02-15 17:16 | PD.PPDC ---
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
[2017-02-15] MEDS ORDERED: NIFE10CA19 PO (17:17)
== END 2017-02-15 17:58 | disposition home or self-care (01) | DRG 781 ==
LOC: OBT 11:28 → L-D 11:28 → OBT 12:20 → OBG 12:20
PROVIDERS: ADMIT Obstetrics & Gynecology; ATTEND Obstetrics & Gynecology
DX: O41.03X0 Oligohydramnios, third trimester, not applicable or unspecified (principal); O24.410 Gestational diabetes mellitus in pregnancy, diet controlled; O60.03 Preterm labor without delivery, third trimester; O36.5930 Maternal care for other known or suspected poor fetal growth, third trimester, not applicable or unspecified; O36.8130 Decreased fetal movements, third trimester, not applicable or unspecified; Z3A.33 33 weeks gestation of pregnancy
CPT/HCPCS: 76705; 76815; 76816; 76818; 76820; 80053; 81001; 82962; 83735; 84112; 85025; 85610; 85730; 86592; 86850; 86900; 86901; G0463; J0702; J1815; J2175; J3475; J7120

== ENCOUNTER 2017-02-20 08:25 | Outpatient (CLI) | payer MEDICAID ==
[~2017-02-20] VITALS: Ht 154.9 cm; Wt 74.2 kg
[~2017-02-20 08:25] MED LIST changes: +NIFE10CA19 PO
[2017-02-20 08:44] VITALS: Ht 154.9 cm; Wt 74.2 kg
[2017-02-20 08:45] VITALS: BP 116/68; PULSE 87; RESP 19
--- NOTE | 2017-02-20 09:46 | RADRPT ---
PROCEDURE: US OB. CLINICAL INDICATION: induced hypertension TECHNIQUE: Transabdominal OB views of the pelvis are available for review. COMPARISON: February 14, 2017 FINDINGS: Within the uterus, there is a single, live intrauterine . The presentation is cephalic. Th e heart rate is 154 beats per minute. The amniotic fluid index in four quadrants is low at 3.7 cm. The largest pocket measures 1.72 cm. The placenta is noted to be anterior and grade 3. There are no findings of abruption or previa. The biophysical profile score is 6/8. IMPRESSION: 1. Single live intrauterine with an amniotic fluid index of 3.7 cm. The biophysical prof ile score is 6/8. Amniotic fluid index is low. 2. The placenta is anterior and grade 3. There are no findings of abruption or previa. RPTAT: QQ .Sharon Kelly MD, Date Time Electronically viewed and signed by .Sharon Kelly MD, on 02/20/2017 09:46 .F/
--- NOTE | 2017-02-20 10:42 | CONS ---
Date/Time of Note Date/Time of Note DATE: 02/20/17 TIME: 10:35 Consultation Date/Type/Reason Admit Date/Time February 20, 2017 OB triage consult This patient is a 37 years old 1 para 0 with estimated date of confinement of March 16, 2017 which makes her 34 weeks and 4 days today. She developed gestational diabetes and is under care for this condition she was referred for evaluation and monitoring. her diabetes is diet-controlled On examination she is a well-developed well-nourished lady around 37 weeks. Her general vital signs appears to be normal with blood pressure 116/60, pulse rate 87, respiration 18, temperature 98.2,. Her fasting blood glucose today was 74. On monitoring heart rate tracing is reactive with fairly good variability occasional acceleration no decelerations. Constitutional: No chills, No diaphoresis, No disoriented, No febrile, No improved, No no complaints, No other, No poor po, No requiring IVF, No requiring O2 Eyes: No discharge, No no complaints, No other, No pain, No redness, No visual change ENT: No bleeding, No congestion, No discharge, No dysphagia, No no complaints, No other, No pain, No sore throat Respiratory: No cough, No no complaints, No other, No pain, No pleuritic pain, No shortness of breath, No sputum, No wheezing Cardiovascular: No chest pain, No edema, No lightheadedness, No no complaints, No orthopenea, No other, No palpitations, No paroxysmal nocturnal dyspnea Gastrointestinal: other, No blood, No constipation, No decreased appetite, No diarrhea, No flatus, No nausea, No no complaints, No pain, No passing stool, No vomiting Genitourinary: other (Pelvic examination was not performed because she did not have any contractions), No bleeding, No discharge, No dysuria, No flank pain, No hematuria, No no complaints Musculoskeletal: No back pain, No bone/joint pain, No neck pain, No no complaints, No other, No restricted range of motion, No swelling Skin: No bruising, No erythema, No laceration, No no complaints, No other, No pruritis, No rash, No skin lesions Neurologic: No confusion, No dizziness, No focal-weakness, No headache, No no complaints, No other, No seizure, No syncope Endocrine: No dry skin, No no complaints, No other, No polydypsia, No polyuria , No temp intolerance Additional Comments . .NST was reactive on ultrasound study her biophysical profile was reported 11/05 with amniotic fluid index of 6.4 These information was shared with her attending physician Dr. Bingham and we will be seeing her on Friday 4 days later for follow-up monitoring . Social History Smoking Status: Never smoker Exam/Review of Systems Vital Signs Vitals Vital Signs Date Time Temp Pulse Resp B/P Pulse Ox O2 Delivery O2 Flow Rate FiO2 02/20/17 08:45 98.2 87 19 116/68 99 Room Air PEPE KING MD Feb 20, 2017 10:42
== END 2017-02-20 10:18 | disposition home or self-care (01) ==
LOC: L-D 08:25 → OBT 08:25
PROVIDERS: ATTEND Obstetrics & Gynecology
DX: O24.410 Gestational diabetes mellitus in pregnancy, diet controlled (principal); Z3A.37 37 weeks gestation of pregnancy
CPT/HCPCS: 76818; G0463

== ENCOUNTER 2017-02-24 16:12 | Inpatient (IN) | payer MEDICAID ==
[~2017-02-24] VITALS: Ht 152.4 cm; Wt 65.3 kg
--- NOTE | 2017-02-24 16:38 | HP ---
Date/Time of Note Date/Time of Note DATE: 02/24/17 TIME: 16:36 OB - History Hx of Present Free Text/Dictation Admitted at 37 weeks gestation for induction of labor because of decreased amniotic fluid and intrauterine growth retardation Chief Complaint: None Last Menstrual Period: Jun 09, 2016 Estimated Due Date: Mar 16, 2017 : 1 Para: 0 Care: Limited Care Ultrasounds: Normal mid trimester US Obstetrical Complications: Growth Restriction, Other ( labor) Medical Complications: None Past Family/Social History * Past Medical, Surgical, Family and Obstetric Histories reviewed from chart. Blood Type: O+ Rubella: immune RPR/VDRL: Negative GBS Status: Unknown HBsAG: Negative OB Admission Exam Physical Exam HEENT: WNL Heart: Rhythm Normal Lungs: Clear, Equal Abdomen: WNL Extremities: Normal Reflexes: Normal Cervical Dilatation: None Effacement: 0% Station: -3 Membranes: Intact Heart Rate: 140's Accelerations: Accelerations Present Decelerations: No Decelerations Varibility: Marked Contractions on Admission: None OB Assessment/Plan Other Assessment: 37 weeks gestation Oligohydramnios growth restriction Other plan: Induce labor Via Cervidil insertion LAURA JOHNSON MD Feb 24, 2017 16:38
[2017-02-24 16:39] VITALS: Ht 152.4 cm; Wt 65.3 kg
[2017-02-24 16:42] VITALS: BP 124/76
[2017-02-24] MEDS ORDERED: BUTORPHANOL 2 MG INJ IV PRN (17:00)
[2017-02-24] MEDS ORDERED: LIDOCAINE 1% (MPF) 30 ML INJ INJ PRN (17:00)
[2017-02-24] MEDS ORDERED: CARBOPROST 250 MCG INJ IM PRN (17:00)
[2017-02-24] MEDS ORDERED: IBUPROFEN 600 MG TAB PO PRN (17:00)
[2017-02-24] MEDS ORDERED: OXYTOCIN 30 UNITS/LR 500 ML IV SCH (17:00)
[2017-02-24] MEDS ORDERED: MISOPROSTOL 200 MCG TAB PR PRN (17:00)
[2017-02-24] MEDS ORDERED: OXYTOCIN 30 UNITS/LR 500 ML IV PRN (17:00)
[2017-02-24] MEDS ORDERED: MINERAL OIL LIGHT 10 ML VIAL TOP PRN (17:00)
[2017-02-24] MEDS ORDERED: METHYLERGONOVINE 0.2 MG INJ IM PRN (17:00)
[2017-02-24] MEDS: LACTATED RINGER'S 1,000 ML IV SCH ×2 (17:08→23:45)
[2017-02-24 17:11] LABS: BASOPHIL # 0.1 10^3/ul (0.0-0.1); BASOPHILS % 0.5 % (0.0-2.0); EOSINOPHILS # 0.1 10^3/ul (0.0-0.5); EOSINOPHILS % 0.5 % (0.0-7.0); HEMATOCRIT 34.9 % (37.0-47.0); HEMOGLOBIN 12.5 g/dl (12.0-16.0); LYMPHOCYTES # 3.5 10^3/ul (0.8-2.9); LYMPHOCYTES % 32.1 % (15.0-51.0); MEAN CORPUSCULAR HEMOGLOBIN 31.4 pg (29.0-33.0); MEAN CORPUSCULAR HGB CONC 35.8 g/dl (32.0-37.0); MEAN CORPUSCULAR VOLUME 87.7 fl (82.0-101.0); MEAN PLATELET VOLUME 10.1 fl (7.4-10.4); MONOCYTE # 0.7 10^3/ul (0.3-0.9); MONOCYTES % 6.4 % (0.0-11.0); NEUTROPHIL # 6.6 10^3/ul (1.6-7.5); PLATELET COUNT 292 10^3/UL (140-415); RED BLOOD COUNT 3.98 10^6/ul (4.20-5.40); RED CELL DISTRIBUTION WIDTH 13.3 % (11.5-14.5)
[2017-02-24 17:25] LABS: INR 0.79; PT RATIO 0.9
[2017-02-24 17:26] LABS: PARTIAL THROMBOPLASTIN TIME 25.3 Sec (25.0-35.0)
[2017-02-24] MEDS ORDERED: AMPICILLIN 2 GM/NS (PMX) 100 ML ONE (17:48)
[2017-02-24] MEDS ORDERED: AMPICILLIN 2 GM/NS (PMX) 100 ML IVPB ONE (18:00)
[2017-02-24] MEDS ORDERED: LACTATED RINGER'S 1,000 ML IV PRN (22:00)
[2017-02-24 23:23] LABS: BARBITURATES Negative (NEGATIVE); BENZODIAZEPINES Negative (NEGATIVE); CANNABINOIDS Negative (NEGATIVE); COCAINE Negative (NEGATIVE); OPIATES Negative (NEGATIVE)
[2017-02-25] MEDS: LACTATED RINGER'S 1,000 ML IV SCH (06:56)
[2017-02-25] MEDS ORDERED: FENTAnyl 2MCG/ML-ROPIV 0.2% 100 ML ONE (07:58)
--- NOTE | 2017-02-25 09:23 | LDN ---
Date/Time of Note Date/Time of Note DATE: 02/25/17 TIME: 09:20 Delivery Summary Normal spontaneous vaginal delivery of a viable over midline episiotomy Weeks of Gestation 37 Placenta Delivered: Spontaneously, Intact & Complete Meconium: none Episiotomy: Yes Indication for episiotomy Deep variable deceleration of heart tones Perineal laceration: 0 Laceration repair: Midline episiotomy was repaired in layers using 2-0 Vicryl and 2-0 chromic in a normal fashion Anesthesia type: Epidural Estimated blood loss: 300 Sponge & Needle done & correct: Yes All needle counts correct: Yes Any foreign bodies felt in the: No Problems: Delivery Information Sex Infant Sex: female Apgars 1 Minute: 9 5 Minute: 9 Suctioning Nose & mouth suctioned at santo: Yes Delee suction performed: No Umbilical Cord Umbilical cord with: 3 Vessels Cord presentations: no nuchal cord Cord Blood was obtained: Yes Mother & Baby Disposition Disposition Mom & Baby to Maternity; Good: Yes (Mother and baby were recovered in good condition, baby with severe growth restriction) Mom transferred to: Other (Maternity) Baby to NICU: No LAURA JOHNSON MD Feb 25, 2017 09:22
[2017-02-25] MEDS ORDERED: OXYTOCIN 30 UNITS/LR 500 ML IV SCH (09:30)
[2017-02-25] MEDS ORDERED: PHYTONADIONE 1 MG/0.5 ML SYG ONE (09:59)
[2017-02-25] MEDS ORDERED: ERYTHROMYCIN 1 GM OPH OINT ONE (09:59)
[2017-02-25 11:00] VITALS: BP 122/76; PULSE 73; RESP 18
[2017-02-25] MEDS ORDERED: BENZOCAINE 20% 56 ML SPRAY TOP PRN (11:00)
[2017-02-25] MEDS ORDERED: OXYTOCIN 30 UNITS/LR 500 ML IV PRN (11:00)
[2017-02-25] MEDS ORDERED: LANOLIN 7 GM TUBE TOP PRN (11:00)
[2017-02-25] MEDS ORDERED: MISOPROSTOL 200 MCG TAB PR PRN (11:00)
[2017-02-25] MEDS ORDERED: ZOLPIDEM 5 MG TAB PO PRN (11:00)
[2017-02-25] MEDS ORDERED: WITCH HAZEL/GLYCERIN PAD PR PRN (11:00)
[2017-02-25] MEDS ORDERED: HYDROCODONE/APAP (5/325) TAB PO PRN ×2 (11:00)
[2017-02-25] MEDS ORDERED: CARBOPROST 250 MCG INJ IM PRN (11:00)
[2017-02-25] MEDS ORDERED: DIBUCAINE 1% 30 GM OINT PR PRN (11:00)
[2017-02-25] MEDS ORDERED: METHYLERGONOVINE 0.2 MG INJ IM PRN (11:00)
[2017-02-25] MEDS: IBUPROFEN 600 MG TAB PO SCH ×2 (12:56→17:50)
[2017-02-25] MEDS: CEPHALEXIN 500 MG CAP PO SCH ×2 (12:58→17:50)
[2017-02-25] MEDS: LACTATED RINGER'S 1,000 ML IV* SCH ×2 (14:55→18:57)
[2017-02-25 16:00] VITALS: BP 108/67; PULSE 92; RESP 18
[2017-02-25 20:29] VITALS: BP 116/61; PULSE 85; RESP 18
[2017-02-25] MEDS: MAGNESIUM HYDROXIDE 30ML CUP PO SCH (20:33)
[2017-02-25] MEDS: SENNA/DOCUSATE NA (8.6MG/50MG) TAB PO SCH (20:34)
[2017-02-26] MEDS: IBUPROFEN 600 MG TAB PO SCH ×4 (00:19→17:54)
[2017-02-26] MEDS: CEPHALEXIN 500 MG CAP PO SCH ×4 (00:20→17:54)
[2017-02-26 04:00] VITALS: BP 98/63; PULSE 82; RESP 18
[2017-02-26 08:20] VITALS: BP 99/62; PULSE 76; RESP 18
[2017-02-26] MEDS: MAGNESIUM HYDROXIDE 30ML CUP PO SCH ×2 (09:00→21:37)
[2017-02-26] MEDS ORDERED: INFLUENZA VIRUS VACCINE 0.5 ML (DISPENSING) IM* ONE (09:00)
[2017-02-26] MEDS: SENNA/DOCUSATE NA (8.6MG/50MG) TAB PO SCH ×2 (09:00→21:37)
[2017-02-26 11:56] LABS: BASOPHIL # 0.1 10^3/ul (0.0-0.1); BASOPHILS % 0.3 % (0.0-2.0); EOSINOPHILS # 0.1 10^3/ul (0.0-0.5); EOSINOPHILS % 0.4 % (0.0-7.0); HEMATOCRIT 32.2 % (37.0-47.0); LYMPHOCYTES # 4.1 10^3/ul (0.8-2.9); LYMPHOCYTES % 22.1 % (15.0-51.0); MEAN CORPUSCULAR HGB CONC 34.2 g/dl (32.0-37.0); MEAN CORPUSCULAR VOLUME 90.7 fl (82.0-101.0); MEAN PLATELET VOLUME 9.8 fl (7.4-10.4); MONOCYTE # 0.7 10^3/ul (0.3-0.9); NEUTROPHIL # 13.6 10^3/ul (1.6-7.5); NEUTROPHILS % 72.7 % (39.0-77.0); PLATELET COUNT 265 10^3/UL (140-415); RED BLOOD COUNT 3.55 10^6/ul (4.20-5.40); RED CELL DISTRIBUTION WIDTH 13.7 % (11.5-14.5); WHITE BLOOD COUNT 18.7 10^3/ul (4.8-10.8)
[2017-02-26 16:00] VITALS: BP 108/60; PULSE 85; RESP 18
--- NOTE | 2017-02-26 18:08 | DS ---
Date/Time of Note Date/Time of Note Home following day DATE: 02/26/17 TIME: 18:06 Obstetrical Discharge Record Final Diagnosis Final Diagnosis: Term delivered Other Final Diagnosis Status post vaginal delivery Vaginal Delivery Obstetrical Delivery: Spontaneous, Episiotomy, Repaired Complications Augmentation: Yes Induction: Yes Condition on Discharge Physical Assessment Last Vitals: See nurse's notes Voiding: Yes Bowel Movement: Yes Breast: Soft, non-tender, Filling Fundus: Firm Abdomen and Incision: Abdomen is soft fundus is firm Episiotomy: Episiotomy is healing Calf Tenderness: No Patient Condition: Good LAURA JOHNSON MD Feb 26, 2017 18:08
--- NOTE | 2017-02-26 18:09 | PD.PPDC ---
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
[2017-02-26] MEDS ORDERED: IBUP-1542 PO (18:10)
[2017-02-26 20:00] VITALS: BP 103/70; PULSE 74; RESP 17
[2017-02-27] MEDS: IBUPROFEN 600 MG TAB PO SCH ×4 (00:52→17:54)
[2017-02-27] MEDS: CEPHALEXIN 500 MG CAP PO SCH ×4 (00:52→17:53)
[2017-02-27 04:00] VITALS: BP 110/60; PULSE 72; RESP 18
[2017-02-27 07:30] VITALS: BP 102/57; PULSE 81; RESP 20
[2017-02-27] MEDS ORDERED: DIPHTH/TET/ACEL PERTUSS (ADULT) 0.5 ML VIAL IM* ONE (09:00)
[2017-02-27] MEDS ORDERED: MEASLES,MUMPS,RUBELLA VACCINE INJ SC* ONE (09:00)
[2017-02-27] MEDS ORDERED: VARICELLA VACCINE LIVE/PF 1,350 UNIT/0.5 ML ML SC* ONE (09:00)
[2017-02-27 09:43] LABS: BASOPHIL # 0.1 10^3/ul (0.0-0.1); BASOPHILS % 0.4 % (0.0-2.0); EOSINOPHILS # 0.1 10^3/ul (0.0-0.5); EOSINOPHILS % 0.8 % (0.0-7.0); HEMATOCRIT 30.8 % (37.0-47.0); HEMOGLOBIN 10.5 g/dl (12.0-16.0); LYMPHOCYTES # 2.9 10^3/ul (0.8-2.9); LYMPHOCYTES % 20.3 % (15.0-51.0); MEAN CORPUSCULAR HEMOGLOBIN 31.1 pg (29.0-33.0); MEAN CORPUSCULAR HGB CONC 34.1 g/dl (32.0-37.0); MEAN CORPUSCULAR VOLUME 91.1 fl (82.0-101.0); MEAN PLATELET VOLUME 9.7 fl (7.4-10.4); MONOCYTE # 0.6 10^3/ul (0.3-0.9); MONOCYTES % 4.1 % (0.0-11.0); NEUTROPHIL # 10.6 10^3/ul (1.6-7.5); NEUTROPHILS % 73.9 % (39.0-77.0); PLATELET COUNT 240 10^3/UL (140-415); RED BLOOD COUNT 3.38 10^6/ul (4.20-5.40); WHITE BLOOD COUNT 14.3 10^3/ul (4.8-10.8)
[2017-02-27] MEDS: SENNA/DOCUSATE NA (8.6MG/50MG) TAB PO SCH (09:43)
[2017-02-27] MEDS: MAGNESIUM HYDROXIDE 30ML CUP PO SCH (09:43)
[2017-02-27 16:00] VITALS: BP 106/58; PULSE 90
== END 2017-02-27 18:02 | disposition home or self-care (01) | DRG 775 ==
LOC: L-D 16:12 → PP1 02-25 10:54 → EDSTATUS 03-16 16:10
PROVIDERS: ADMIT Obstetrics & Gynecology; ATTEND Obstetrics & Gynecology
PROC: 10E0XZZ Delivery of Products of Conception, External Approach (ICD-10-PCS; principal; 2017-02-25)
PROC: 0W8NXZZ Division of Female Perineum, External Approach (ICD-10-PCS; 2017-02-25)
DX: O36.5930 Maternal care for other known or suspected poor fetal growth, third trimester, not applicable or unspecified (principal); Z37.0 Single live birth; Z3A.37 37 weeks gestation of pregnancy
CPT/HCPCS: 62319; 80307; 82962; 85025; 85610; 85730; 86592; 86900; 86901; 87340; 88307; 90686; 90715; 90716; J3430; J0290; J0595; J2590; J3010; J7120

== ENCOUNTER 2018-10-01 16:24 | Emergency (ER) | payer MEDICAID ==
[~2018-10-01] VITALS: Wt 78.0 kg
[~2018-10-01 16:24] MED LIST changes: +IBUP-1542 PO; -NIFE10CA19 PO
[2018-10-01 16:28] VITALS: BP 122/71; PULSE 79; RESP 18
[2018-10-01] MEDS ORDERED: KETOROLAC 30 MG INJ IM STA (16:45)
[2018-10-01] MEDS ORDERED: IBUP-1542 PO (16:56)
--- NOTE | 2018-10-01 17:00 | ERD ---
ER Documentation Chief Complaint Chief Complaint LEFT EAR PAIN HPI Patient is a 38-year-old female, no past medical history, presents the ER for concerns of left ear pain x2 days. Patient states every time she opens her jaw or chills she has pain in her left ear. Patient denies any fevers or chills. Patient denies any drainage. Patient denies any hearing loss. Patient denies any cough, URI symptoms, headache, nausea, vomiting or LOC. Patient denies taking medications for symptoms. ROS All systems reviewed and are negative except as per history of present illness. Medications Home Meds Active Scripts Ibuprofen* (Motrin*) 600 Mg Tab, 600 MG PO Q6, #30 TAB Prov:RAVI DE LA CRUZ PA-C 10/01/18 Ibuprofen* (Ibuprofen*) 600 Mg Tablet, 600 MG PO Q6, #30 TAB 0 Refills Prov:LAURA JOHNSON MD 02/26/17 Reported Medications Vit #76/Iron,Carb/FA (Prenatabs Rx Tablet) 1 Each Tablet, 1 EACH PO, TAB 01/16/17 Allergies Allergies: Coded Allergies: No Known Drug Allergies (Verified Allergy, Unknown, 02/24/17) PMhx/Soc Medical and Surgical Hx: pt denies Medical Hx, pt denies Surgical Hx Hx Alcohol Use: No Hx Substance Use: No Hx Tobacco Use: No FmHx Family History: No diabetes Physical Exam Vitals Vital Signs Date Temp Pulse Resp B/P (MAP) Pulse Ox O2 O2 Flow FiO2 Time Delivery Rate 10/01/18 98.1 79 18 122/71 99 16:28 (88) Physical Exam [facility] pediatric gENERAL: Well-developed, well-nourished female. Appears in no acute distress. HEAD: Normocephalic, atraumatic. EYES: Pupils are equally reactive bilaterally. EOMs grossly intact. No conjunctival erythema. ENT: Bilateral TMs are nonerythematous, nonbulging. No mastoid erythema or swelling noted bilaterally. Moist mucous membranes. No uvula deviation. No kissing tonsils. Left TMJ joint noted to be tender on palpation. Audible click noted with opening and closing jaw. NECK: Supple. No meningismus. Normal range of motion of the neck. LUNG: Clear to auscultation bilaterally. No rhonchi, wheezing, rales or coarse breath sounds. HEART: Regular rate and rhythm. No murmurs, rubs or gallops. EXTREMITIES: Equal pulses bilaterally. No peripheral clubbing, cyanosis or edema. No unilateral leg swelling. NEUROLOGIC: Alert and oriented. Moving all four extremities without any difficulty. Normal speech. Steady gait. SKIN: Normal color. Warm and dry. No rashes or lesions. Results 24 hrs Laboratory Tests Test 10/01/18 16:55 POC Beta HCG, Qualitative NEGATIVE Current Medications Medications Dose Sig/Jody Start Time Status Last (Trade) Ordered Route PRN Stop Time Admin Dose Reason Admin Ketorolac 30 mg ONCE STAT 10/01/18 DC Tromethamine IM 16:45 10/01/18 (Toradol) 16:46 Procedures/MDM MEDICAL DECISION MAKING: This is a 38-year-old female presents the ER for concerns of left-sided ear pain x2 days. Pain is worse with opening mouth and with chewing. Vital signs were reviewed. Patient was afebrile. Patient was not hypoxic. Physical exam findings are consistent with TMJ dysfunction. Patient was given Toradol for pain. Urine test was negative. Patient was advised to follow-up with dentist. Low suspicion for otitis externa, acute otitis media, tympanic membrane perforation, mastoiditis, otic barotrauma, impaction, meningitis. Patient was nontoxic, [id number] prior to discharge. PRESCRIPTIONS: Ibuprofen DISCHARGE: At this time, patient is stable for discharge and outpatient management. I have instructed the patient to follow-up with his/her primary care physician in 1-2 days. I have discussed with the patient the possibility of needing to see a specialist for further workup and diagnostic studies if the pain persists. I have instructed the patient to promptly return to the ER at any time for any new or worsening symptoms including increased pain, fever, swelling, discharge or hearing loss. The patient and/or family expressed understanding of and agreement with this plan. All questions were answered. Home care instructions were provided. Disclaimer: Inadvertent spelling and grammatical errors are likely due to EHR/dictation software use and do not reflect on the overall quality of patient care. Also, please note that the electronic time recorded on this note does not necessarily reflect the actual time of the patient encounter. Departure Diagnosis: Primary Impression: TMJ dysfunction Condition: Fair Patient Instructions: Tmj Syndrome Referrals: [facility] YOU HAVE RECEIVED A MEDICAL SCREENING EXAM AND THE RESULTS INDICATE THAT YOU DO NOT HAVE A CONDITION THAT REQUIRES URGENT TREATMENT IN THE EMERGENCY DEPARTMENT. FURTHER EVALUATION AND TREATMENT OF YOUR CONDITION CAN WAIT UNTIL YOU ARE SEEN IN YOUR DOCTORS OFFICE WITHIN THE NEXT 1-2 DAYS. IT IS YOUR RESPONSIBILITY TO MAKE AN APPOINTMENT FOR FOLOW-UP CARE. IF YOU HAVE A PRIMARY DOCTOR --you should call your primary doctor and schedule an appointment IF YOU DO NOT HAVE A PRIMARY DOCTOR YOU CAN CALL OUR PHYSICIAN REFERRAL HOTLINE AT IF YOU CAN NOT AFFORD TO SEE A PHYSICIAN YOU CAN CHOSE FROM THE FOLLOWING [facility] [address] [facility] [address] [facility] [facility] [address] [facility] [address] [facility] [address] [facility] [facility]. [address] [facility] [facility] [facility] YOU HAVE RECEIVED A MEDICAL SCREENING EXAM AND THE RESULTS INDICATE THAT YOU DO NOT HAVE A CONDITION THAT REQUIRES URGENT TREATMENT IN THE EMERGENCY DEPARTMENT. FURTHER EVALUATION AND TREATMENT OF YOUR CONDITION CAN WAIT UNTIL YOU ARE SEEN IN YOUR DOCTORS OFFICE WITHIN THE NEXT 1-2 DAYS. IT IS YOUR RESPONSIBILITY TO MAKE AN APPOINTMENT FOR FOLOW-UP CARE. IF YOU HAVE A PRIMARY DOCTOR --you should call your primary doctor and schedule and appointment IF YOU DO NOT HAVE A PRIMARY DOCTOR YOU CAN CALL OUR PHYSICIAN REFERRAL HOTLINE AT . IF YOU CAN NOT AFFORD TO SEE A PHYSICIAN YOU CAN CHOSE FROM THE FOLLOWING [facility]: [facility] [address] [place] [address] [facility] [address] [place] [address] [facility] [address] [place] [address] [facility] DENT[facility] ([facility] [employer] walk in clinic) Additional Instructions: Llame al doctor MAANA y tammi lesli EVANS PARA DENTRO DE 1-2 RICARDO.Dgale a la secretaria que nosotros le instruimos hacer esta evans.Avise o llame si smith condicin se empeora antes de la evans. Regresa aqui si peor o no mejor. RAVI DE LA CRUZ PA-C Oct 01, 2018 17:00
== END 2018-10-01 17:12 | disposition home or self-care (01) ==
LOC: FTE 16:24
DX: M26.622 Arthralgia of left temporomandibular joint (principal)
CPT/HCPCS: 81025; 96372; J1885; Z7502

== ENCOUNTER 2018-10-03 04:45 | Emergency (ER) | payer MEDICAID ==
[~2018-10-03] VITALS: Ht 162.6 cm; Wt 62.3 kg
[2018-10-03 04:54] VITALS: BP 128/83; PULSE 78; RESP 14; Ht 162.6 cm; Wt 62.3 kg
[2018-10-03] MEDS ORDERED: NPH10OT LEFT EAR (05:25)
--- NOTE | 2018-10-03 05:29 | ERD ---
ER Documentation Chief Complaint Chief Complaint BIB SELF, CC; LEFT EAR PAIN X 3 DAYS HPI This is a Bulgarian-speaking 38-year-old otherwise healthy female who presents to the ED complaining of sharp left ear pain for the past 3 days. Pain is been getting progressively worse. Patient denies any ear drainage. Denies any muffled hearing. Denies any fevers or chills. She does have some pain postauricular. She has been taking ibuprofen with intermittent relief of her pain. ROS All systems reviewed and are negative except as per history of present illness. Medications Home Meds Active Scripts Neomycin/Polymyxin/Hydrocort* (Cortisporin* Otic) 10 Ml Susp, 4 DROP LEFT EAR QID for 7 Days, EA Prov:STEPHANIA RAMÍREZ PA-C 10/03/18 Ibuprofen* (Motrin*) 600 Mg Tab, 600 MG PO Q6, #30 TAB Prov:RAVI DE LA CRUZ PA-C 10/01/18 Ibuprofen* (Ibuprofen*) 600 Mg Tablet, 600 MG PO Q6, #30 TAB 0 Refills Prov:LAURA JOHNSON MD 02/26/17 Reported Medications Vit #76/Iron,Carb/FA (Prenatabs Rx Tablet) 1 Each Tablet, 1 EACH PO, TAB 01/16/17 Allergies Allergies: Coded Allergies: ibuprofen (Verified Allergy, Unknown, 10/03/18) PMhx/Soc Medical and Surgical Hx: pt denies Medical Hx, pt denies Surgical Hx Hx Alcohol Use: No Hx Substance Use: No Hx Tobacco Use: No Smoking Status: Never smoker Physical Exam Vitals Vital Signs Date Temp Pulse Resp B/P (MAP) Pulse Ox O2 O2 Flow FiO2 Time Delivery Rate 10/03/18 97.4 78 14 128/83 99 04:54 (98) Physical Exam Const: No acute distress Head: Atraumatic Eyes: Normal Conjunctiva ENT: + Left external auditory canal erythematous with white debris. No TM perforation. Mild left postauricular tenderness palpation. Right TM and auditory canal normal. Neck: Full range of motion. No meningismus. Neur: Awake and alert Psych: Normal Mood and Affect Procedures/MDM MEDICAL DECISION MAKIN-year-old female presents with left ear pain. Patient has evidence of acute otitis externa on physical exam. No clinical evidence of otitis media, malignant otitis externa, TM perforation, mastoiditis or meningitis. Will treat with antibiotic eardrops. Recommend PCP follow-up in 1 week. Strict return precautions were discussed.. PRESCRIPTIONS: Cortisporin otic drops SPECIALIST FOLLOW UP RECOMMENDED: None Patient has been advised to follow up with primary care in 1-2 days. Departure Diagnosis: Primary Impression: Otitis externa Otitis externa type: unspecified type Chronicity: acute Laterality: left Qualified Codes: H60.502 - Unspecified acute noninfective otitis externa, left ear Condition: Stable Patient Instructions: External Ear Infection (Adult) Referrals: COMM[facility]ITY CLIN[facility] YOU HAVE RECEIVED A MEDICAL SCREENING EXAM AND THE RESULTS INDICATE THAT YOU DO NOT HAVE A CONDITION THAT REQUIRES URGENT TREATMENT IN THE EMERGENCY DEPARTMENT. FURTHER EVALUATION AND TREATMENT OF YOUR CONDITION CAN WAIT UNTIL YOU ARE SEEN IN YOUR DOCTORS OFFICE WITHIN THE NEXT 1-2 DAYS. IT IS YOUR RESPONSIBILITY TO MAKE AN APPOINTMENT FOR FOLOW-UP CARE. IF YOU HAVE A PRIMARY DOCTOR --you should call your primary doctor and schedule an appointment IF YOU DO NOT HAVE A PRIMARY DOCTOR YOU CAN CALL OUR PHYSICIAN REFERRAL HOTLINE AT IF YOU CAN NOT AFFORD TO SEE A PHYSICIAN YOU CAN CHOSE FROM THE FOLLOWING [facility] [address] [facility]. [facility] [address] [facility]. [facility] [address] [facility]. [facility] [address] [facility] [facility] [address] [facility]. [facility]. [address] [facility]. [facility] YOU HAVE RECEIVED A MEDICAL SCREENING EXAM AND THE RESULTS INDICATE THAT YOU DO NOT HAVE A CONDITION THAT REQUIRES URGENT TREATMENT IN THE EMERGENCY DEPARTMENT. FURTHER EVALUATION AND TREATMENT OF YOUR CONDITION CAN WAIT UNTIL YOU ARE SEEN IN YOUR DOCTORS OFFICE WITHIN THE NEXT 1-2 DAYS. IT IS YOUR RESPONSIBILITY TO MAKE AN APPOINTMENT FOR FOLOW-UP CARE. IF YOU HAVE A PRIMARY DOCTOR --you should call your primary doctor and schedule and appointment IF YOU DO NOT HAVE A PRIMARY DOCTOR YOU CAN CALL OUR PHYSICIAN REFERRAL HOTLINE AT . IF YOU CAN NOT AFFORD TO SEE A PHYSICIAN YOU CAN CHOSE FROM THE FOLLOWING [facility] INSTITUTIONS: [facility] [id number] [place] [address] [id number] [facility] [address] [place], [place] [id number] [place] [address] [address] [place] [address] Additional Instructions: Paciente aconseja volver a Departamento de urgencias inmediatamente para sntomas nuevos o que empeoran . Paciente aconseja posteriores con el PCP en 1-2 jarquin. Si el paciente no tiene ninguna de atencin primaria pueden seguir con [facility] [id number] [place] [address] [address] STEPHANIA RAMÍREZ PA-C Oct 03, 2018 05:29
== END 2018-10-03 05:38 | disposition home or self-care (01) ==
LOC: FTE 04:45
DX: H60.502 Unspecified acute noninfective otitis externa, left ear (principal)
CPT/HCPCS: 99283

== ENCOUNTER 2018-11-25 17:25 | Emergency (ER) | payer MEDICAID ==
[~2018-11-25] VITALS: Ht 160 cm; Wt 62.7 kg
[~2018-11-25 17:25] MED LIST changes: +ACET500T98 PO; +NPH10OT LEFT EAR
[2018-11-25 17:46] VITALS: BP 128/59; PULSE 82; RESP 16; Ht 160 cm; Wt 62.7 kg
== END 2018-11-25 18:00 | disposition home or self-care (01) ==
LOC: E/R 17:25
DX: H60.8X2 Other otitis externa, left ear (principal)
CPT/HCPCS: 99283